=== PATIENT | female | born 1960 | race Caucasian/White ===

== ENCOUNTER 2019-10-15 02:32 | Inpatient (IN) | payer OTHER ==
[2019-10-15 03:37] LABS: Hemoglobin 7.9 g/dL (12.0-16.0); Mean Corpuscular HGB CONC 34.7 g/dL (32.0-36.0); Mean Corpuscular Hemoglobin 38.1 pg (27.0-31.0); RBC Distribution Width 16.8 % (11.5-14.5); Red Blood Cell (RBC) Count 2.07 mill/uL (4.20-5.40)
[2019-10-15] MEDS ORDERED: Piperacillin/Tazobactam 3.375 GM VIAL ONE (03:44)
[2019-10-15 03:53] LABS: ALT (SGPT) 63 U/L (8-55); AST (SGOT) 98 U/L (5-34); Albumin 3.6 g/dL (3.5-5.0); Alkaline Phosphatase 140 U/L (40-110); Anion Gap 22 mmol/L (10-20); BUN (Urea Nitrogen) 9 mg/dL (9.8-20.1); Bilirubin, Total 3.7 mg/dL (0.2-1.2); Calc. Creatinine Clearance 0 mL/min (70-130); Calcium 9.1 mg/dL (7.8-10.44); Carbon Dioxide 20 mmol/L (22-29); Chloride 95 mmol/L (98-107); Estimated GFR-MDRD 65; Globulin 2.4 g/dL (2.4-3.5); Glucose 111 mg/dL (70-105); Lipase 31 U/L (8-78); Potassium 3.4 mmol/L (3.5-5.1); Sodium 134 mmol/L (136-145)
[2019-10-15 03:54] LABS: #Lymphocytes 0.4 thou/uL (1.20-3.40); #Monocytes 0.3 thou/uL (0.11-0.59); #Neutrophils 2.6 thou/uL (1.40-6.50); %Basophils 0.3 % (0.0-1.0); %Eosinophils 0.4 % (0.0-10.0); %Lymphocytes 12.8 % (21.0-51.0); %Monocytes 9.7 % (0.0-10.0); %Neutrophils 76.8 % (42.0-75.0); MDiff Complete? YES; Macrocytosis SLIGHT = 6-15 cells (100X) (0-5/hpf); Mean Platelet Volume 8.1 fL (7.4-10.4); Platelet Count 136 thou/uL (130-400); White Blood Cell (WBC) Count 3.4 thou/uL (4.8-10.8)
[2019-10-15] MEDS ORDERED: Cefepime 2 GM VIAL ONE (04:15)
[2019-10-15 04:42] LABS: PTT 26.8 SEC (22.9-36.1); Prothrombin Time 12.9 SEC (12.0-14.7)
[2019-10-15] MEDS ORDERED: metroNIDAZOLE 500 MG/100 ML BAG ONE (05:02)
[2019-10-15 05:15] LABS: Bilirubin 2+ (Negative); Blood, Urine Trace (Negative); Clarity Extra Turbid (Clear); Glucose, Urine (Dipstick) Normal (Negative); Leukocyte 75 Leu/uL (Negative); Nitrite Negative (Negative); Protein, Urine (Dipstick) 50 mg/dL (Neg-Trace); Urobilinogen 6 mg/dL (Less than 2); Yeast-Budding 2+ HPF (None Seen)
[2019-10-15 05:25] LABS: Bacteria/HPF 1+ HPF (None Seen); Squamous Epithelial 21-50 HPF (0-3)
--- NOTE | 2019-10-15 05:59 | PDOC.FPRHP ---
- History of Present Illness Chief Complaint: AMS, Fever, Hyperbilirubinemia History of Present Illness: Pt is a 59 yo female with PMH significant for COPD, DM, HTN, HLD, Graves Disease , and Anxiety who presented to the [facility] with AMS, fever, cough, wheezing. Pt has been experiencing cough for a couple of weeks. She denied sputum production. He has routinely been taking her inhalers but does not have them in the hospital. Decreased PO intake x 3 days. At the [facility] she was found to be septic, fever, lactic acid elevation, tachycardic, WBC WNL but left shift. She also was noted to have a bilirubin of 3.7 so further workup needed and transferred to [facility]. In our ED she was still found to be altered. EKG revealed sinus tachycardia. She was started on cefepime, vancomycin, flagyl for possible ascending cholangitis. Pt has history GI bleed in August at [facility]. Hx taken from and [facility] ED Note. - Allergies/Adverse Reactions Allergies Allergy/AdvReac Type Severity Reaction Status Date / Time No Known Allergies Allergy Unverified 10/15/19 06:30 - History PMHx: COPD, DM, HTN, HLD, Grave's Disease, Anxiety PSHx: Appendectoy, Thyroidectomy, R Eye Surg unsure reason FHx: unable to obtain Social: smokes 1/2 ppd, drinks alcohol occasionally, no drug use - Review of Systems General: reports: fever/chills, weight/appetite/sleep changes ENT: denies: nasal congestion, rhinorrhea Respiratory: reports: cough, shortness of breath. denies: congestion Cardiovascular: denies: chest pain, palpitation, edema Gastrointestinal: reports: nausea. denies: vomiting, diarrhea, constipation Skin: denies: rashes, lesions Neurological: denies: numbness - Vital signs BP: 97/69 HR: 115 RR: 18 Tmax: 99.4 Pox: 98% on RA Wt: 73.5 kg - Physical Exam Constitutional: NAD -Constitutional: She is awake, alert, and oriented x [address], she also has poor short term memory HEENT: PERRLA, EOMI Neck: FROM, trachea midline Heart: RRR, normal S1/S2 Lungs: CTAB, no wheezing -Lungs: Decreased breath sounds Abdomen: non-tender, bowel sounds present -Abdomen: mild distention, negative allen's Neurological: no focal deficit, CN II-XII intact Heme/Lymphatic: no purpura, no petechia FMR H&P: Results - Labs Result Diagrams: 10/15/19 03:28 10/15/19 03:09 Lab results: WBC 3.4 thou/uL (4.8-10.8) L 10/15/19 03:28 Hgb 7.9 g/dL (12.0-16.0) L 10/15/19 03:28 Hct 22.8 % (36.0-47.0) L 10/15/19 03:28 MCV 110.0 fL (78.0-98.0) H 10/15/19 03:28 Plt Count 136 thou/uL (130-400) 10/15/19 03:28 Neutrophils % 76.8 % (42.0-75.0) H 10/15/19 03:28 Sodium 134 mmol/L (136-145) L 10/15/19 03:09 Potassium 3.4 mmol/L (3.5-5.1) L 10/15/19 03:09 Chloride 95 mmol/L (98-107) L 10/15/19 03:09 Carbon Dioxide 20 mmol/L (22-29) L 10/15/19 03:09 BUN 9 mg/dL (9.8-20.1) L 10/15/19 03:09 Creatinine 0.89 mg/dL (0.6-1.1) 10/15/19 03:09 Glucose 111 mg/dL (70-105) H 10/15/19 03:09 Lactic Acid 5.9 mmol/L (0.5-2.2) H* 10/15/19 03:09 Calcium 9.1 mg/dL (7.8-10.44) 10/15/19 03:09 Total Bilirubin 3.7 mg/dL (0.2-1.2) H 10/15/19 03:09 AST 98 U/L (5-34) H 10/15/19 03:09 ALT 63 U/L (8-55) H 10/15/19 03:09 Alkaline Phosphatase 140 U/L (40-110) H 10/15/19 03:09 B-Natriuretic Peptide 119.1 pg/mL (0-100) H 10/15/19 03:28 Serum Total Protein 6.0 g/dL (6.0-8.3) 10/15/19 03:09 Albumin 3.6 g/dL (3.5-5.0) 10/15/19 03:09 Lipase 31 U/L (8-78) 10/15/19 03:09 Urine Ketones 20 mg/dL (Negative) A 10/15/19 03:40 Urine Blood Trace (Negative) A 10/15/19 03:40 Urine Nitrite Negative (Negative) 10/15/19 03:40 Ur Leukocyte Esterase 75 Elba/uL (Negative) A 10/15/19 03:40 Urine RBC 4-6 HPF (0-3) A 10/15/19 03:40 Urine WBC 4-6 HPF (0-3) A 10/15/19 03:40 Ur Squamous Epith Cells 21-50 HPF (0-3) A 10/15/19 03:40 Urine Bacteria 1+ HPF (None Seen) A 10/15/19 03:40 FMR H&P: A/P - Problem List (1) Hyperbilirubinemia Current Visit: Yes Status: Acute Code(s): E80.6 - OTHER DISORDERS OF BILIRUBIN METABOLISM (2) Lactic acidosis Current Visit: Yes Status: Acute Code(s): E87.2 - ACIDOSIS (3) Tachycardia Current Visit: Yes Status: Acute Code(s): R00.0 - TACHYCARDIA, UNSPECIFIED (4) Hypokalemia Current Visit: Yes Status: Acute Code(s): E87.6 - HYPOKALEMIA (5) COPD exacerbation Current Visit: Yes Status: Acute Code(s): J44.1 - CHRONIC OBSTRUCTIVE PULMONARY DISEASE W (ACUTE) EXACERBATION (6) HTN (hypertension) Current Visit: Yes Status: Acute Code(s): I10 - ESSENTIAL (PRIMARY) HYPERTENSION (7) DMII (diabetes mellitus, type 2) Current Visit: Yes Status: Acute (8) Graves disease Current Visit: Yes Status: Acute Code(s): E05.00 - THYROTOXICOSIS W DIFFUSE GOITER W/O THYROTOXIC CRISIS (9) Anxiety Current Visit: Yes Status: Acute Code(s): F41.9 - ANXIETY DISORDER, UNSPECIFIED (10) AMS (altered mental status) Current Visit: Yes Status: Acute Code(s): R41.82 - ALTERED MENTAL STATUS, UNSPECIFIED - Plan Pt is a 59 yo female who presents for AMS, cough, hyperbilirubinemia: # Sepsis 2/2 COPD, possible abdominal pathology, urinary tract infection Tachycardia, lactic acid elevation, Normal WBC with left shift, fever - pt started on cefepime, vanc, flagyl in the emergency department # COPD Exacerbation - start prednisone x 5 days - pt started on - duonebs - med rec needed # Hyperbilirubinemia - pending Abdominal U/S, CT Abdomen - started abx as above in case pt has acute infectious process affecting the gallbladder # AMS Pt AAOx2 but has poor short term memory - likely secondary to sepsis, monitor for resolution with treatment. # Macrocytic Anemia - further workup needed # HTN - hold home meds # Graves Disease - continue home meds # HLD - continue home meds # DM II - continue home meds - low dose SSI # Anxiety - continue home meds FMR H&P: Upper Level - Plan Date/Time: 10/15/19 0557 I, William Warner MD, have evaluated this patient and agree with findings/plan as outlined by graphic design intern resident. Pertinent changes/additions are listed here. Manuela Daniel is a 59 year old F with a PMH of COPD, DM2, HTN, Graves who was transferred from the [place] ED for sepsis. She was experiencing AMS, fever, cough, wheezing. Sx have been progressively worsening of the last couple weeks. She has been using inhalers at home with no improvement of symptoms. She has had decreased po intake for a few days. Denies any chest pain, objective fevers, abdominal pain, n/v. BP was 97/69, HR 115, RR 18, 98% on RA. Labs on admission showed WBC 3.4 with left shift, Hg of 7.9. Also had a bilirubin of 3.7. EKG at outside facility revealed sinus tachycardia. She was started on cefepime, vancomycin and flagyl. ERMD called to admission patient for sepsis 2/2 possible ascending cholangitis. Patient denies any abdominal pain and there was no ttp on exam. Imaging was ordered but not completed yet. Pts history is concerning for COPD exac, had decreased air movement, wheezes. Will continue empiric antibiotics, steroids, and duonebs. Further management based on imaging results. Urine was dirty and may be source of sepsis. Urine and blood Cx ordering. Working up bilirubin with RUQ US, results pending. Anticipate hospital stay >48 hours. Please see graphic design intern note for full H&P, which I have reviewed and agree with.
[2019-10-15] MEDS ORDERED: Dextrose 5% in Water 1,000 ML IV PRN (07:27)
[2019-10-15] MEDS ORDERED: Dextrose 50% Abboject 50 ML SYRINGE SLOW IVP PRN (07:27)
[2019-10-15] MEDS ORDERED: HumaLOG 300 UNITS/3 ML VIAL SC PRN (07:27)
--- NOTE | 2019-10-15 07:32 | CT ---
PRELIMINARY REPORT/[facility]/EMERGENCY AFTER HOURS PROCEDURE: EXAM: CT Abdomen and CT Pelvis, with Contrast DATE/ TIME: 10/15/2019, 4:06 AM INDICATION: Hyperbilirubinemia. Transfer patient from [place]. TECHNIQUE: Helical CT was performed through the abdomen and pelvis during the intravenous administra tion of 100 mL Isovue-370. GI contrast was not utilized. Coronal and sagittal reconstructions were generated and reviewed. Exam was performed using one or more of the following dose reduction te chniques: automated exposure control, adjustment of the mA and/or kV according to patient size, or use of iterative reconstruction technique. COMPARISON: None. FINDINGS: The lung bases are clear. There is no pleural effusion. The stomach contains a small amount of gas and liquid. Nondilated small bowel loops are of varying c aliber with most containing gas. Appendix is not seen but there is no pericecal abnormality to suggest acute appendicitis. Submucosal edema because of circumferential wall thickening of the cecum and ascending colon with single wall thickness measuring up to 9 mm. There is gas scattered throughout the colon without obstruction. There is negligible form stool. There is no intestinal pn eumatosis, portal venous air or pneumoperitoneum. Gallbladder is unremarkable. Liver measures 20.7 cm longitudinally and has a coarse parenchymal db lisandra with hypoattenuation consistent with fatty infiltration. Pancreas is moderately atrophic. Spleen, adrenal glands and kidneys are normal. The abdominal aorta tapers containing moderate athero sclerotic calcified plaque. Inferior vena cava is not flattened. Gynecological structures are unremarkable. Urinary bladder is decompressed. There is no pelvic ascites. There is a large amount of retroperitoneal, intra-abdominal and extra-abdominal adipose tissue. Smal l 1 cm umbilical hernia contains fat. Mild lumbar facet arthropathy is seen. There is no malalignment. No acute osseous abnormalities apparent. IMPRESSION: 1. Abnormal findings within the cecum and ascending colonic segment. Findings suggest nonspecific c olitis. 2. Hepatomegaly. Hepatosteatosis. 3. Aortic atherosclerosis. 4. Small fat-containing umbilical hernia. ELECTRONICALLY SIGNED BY: Robert Gee DO Oct 15, 2019 5:14:17 AM NURSERY MANAGER FINAL REPORT CT ABDOMEN AND PELVIS WITH IV CONTRAST: DATE: 10/15/2019. TIME: Performed on an emergency basis at 0405 hours. HISTORY: Abdominal pain. Hyperbilirubinemia. FINDINGS: Agree with the preliminary report by Dr. Gee from [facility]. Acute inflammation of the ascen ding colon. Cause for acute colitis is not evident. Hepatosteatosis. Other incidental-type findings as detailed in the preliminary report. Transcribed Date/Time: 10/15/2019 8:02 AM
--- NOTE | 2019-10-15 07:35 | ULT ---
Sonogram right upper quadrant HISTORY: Right upper quadrant pain. FINDINGS: Gallbladder has a normal appearance. No stones visible. Common duct is 0.4 cm. Liver is dif fusely echogenic without focal mass or intrahepatic biliary dilatation. No free fluid. IMPRESSION: Hepatic steatosis. No evidence of gallstones or acute biliary obstruction.
--- NOTE | 2019-10-15 08:19 | CT ---
PRELIMINARY REPORT/[facility]/AFTER HOURS PROCEDURE CT HEAD WITHOUT CONTRAST: 10/15/2019 4:02 a.m. INDICATION: Altered mental status. Transfer patient from [place]. TECHNIQUE: Axial CT imaging was performed through the head without intravenous administration of contrast. Exam was performed using one or more of the following dose reduction techniques: automated exposure cont rol, adjustment of the mA and/or kV according to patient size, or use of iterative reconstruction mika hnique. COMPARISON: None. FINDINGS: There is no intracranial hemorrhage, mass or mass effect. The brain exhibits mild diffuse atrophy. Mild periventricular white-matter hypoattenuation is seen; although nonspecific this is most commonly related to the sequela of chronic small-vessel ischemia. There is no CT evidence of an acute infarc t. Calcified atheroma is seen within the cavernous portions of the internal carotid arteries compati ble with intracranial atherosclerotic vascular disease (ASVD). Mastoid air cells are clear. Imaging begins at the lower maxillary level. A large 3-4 cm nasal septal defect is noted. There day ears to have been bilateral turbinectomies. Mild lobulated mucosal thickening in the maxillary sinuse s is seen. Remaining sinuses are essentially clear. Orbital structures show no gross abnormality. IMPRESSION: 1. CT shows no acute intracranial abnormality. 2. Atrophy and leukoencephalopathy likely related to the sequela of chronic microangiopathy in this patient with intracranial ASVD. 3. Evidence of prior endoscopic sinus surgery with nasal septal perforation. 4. Bilateral maxillary sinus disease. ELECTRONICALLY SIGNED BY: Robert Gee DO Oct 15, 2019 4:48:16 AM SPINDLE REPAIRER This report is intended for review by the ordering physician only, in accordance of law. If you recei ve this report in error, please call [facility] at [phone]. FINAL REPORT CT BRAIN WITHOUT CONTRAST: FINDINGS/IMPRESSION: I agree with the findings and impression given in the preliminary report per the [facility] phy sician. No evidence of acute intracranial abnormality. CODE QA
[2019-10-15] MEDS: predniSONE 20 MG TAB PO SCH (08:37)
--- NOTE | 2019-10-15 08:39 | RAD ---
SINGLE VIEW OF THE CHEST: COMPARISON: None. HISTORY: Altered mental status with possible infection. FINDINGS: Single view of the chest shows a normal sized cardiomediastinal silhouette. There is no evidence of c onsolidation, mass, or pleural effusion. The bones are unremarkable. IMPRESSION: No evidence of acute cardiopulmonary disease. POS: C
[2019-10-15] MEDS ORDERED: Azithromycin 250 MG TAB PO SCH (09:00)
[2019-10-15] MEDS ORDERED: Enoxaparin Sodium 40 MG/0.4 ML SYRINGE SC SCH (09:00)
[2019-10-15] MEDS ORDERED: Lactated Ringer's 1,000 ML IV SCH (09:45)
[2019-10-15 10:17] LABS: Iron Binding Capacity, Total 138 mcg/dL (265-497); Lactic Acid 3.8 mmol/L (0.5-2.2); Transferrin, Serum 110 mg/dL (180-382)
[2019-10-15 10:18] LABS: Iron 150 ug/dL (50-170)
[2019-10-15] MEDS ORDERED: Potassium Chloride 20 MEQ TAB PO SCH (11:15)
[2019-10-15 11:21] VITALS: BMI 26.2
[2019-10-15 11:30] LABS: Ferritin 2584.31 ng/mL (10-291)
--- NOTE | 2019-10-15 12:23 | HP ---
I have discussed the case with Dr. Harvey Meléndez and agree with his assessment and plan. HISTORY OF PRESENT ILLNESS: Briefly, Ms. Daniel is a 59-year-old white female patient who is a transfer from [facility]. She presented to [place] yesterday with a cough that have been ongoing for several days and associated with fever and altered mental status. Of note, she was noted to have significant hyperbilirubinemia and elevated LFTs as well as elevated alkaline phosphatase, all consistent with possible ascending cholangitis. She was therefore transferred to our facility for further evaluation and treatment. I examined her on the morning of 10/15/2019. This morning she is confused but awake and alert. She denies any abdominal pain, but states that two days ago she did have right upper quadrant abdominal pain. Evidently she had some discomfort earlier this morning in the ER because the note states that she had a right upper quadrant pain at that time with abdominal distention. PHYSICAL EXAMINATION: VITAL SIGNS: Her blood pressure is 100/70. Her heart rate is 100 and regular. She has a temperature of 99.4, her room air pulse ox is 98%. EAR, NOSE, AND THROAT: Dry mucous membranes. No erythema or exudate. NECK: Supple. CARDIAC: Heart rhythm is regular. No gallop or murmur noted. LUNGS: Breath sounds are diminished with rhonchi. No wheezing. No respiratory distress. ABDOMEN: Nontender at this time. Slightly distended. No guarding, rebound, or rigidity. Bowel sounds are diminished. She also has an umbilical hernia approximately 2 cm, which is easily reducible. NEUROLOGIC: There are no focal deficits other than being disoriented to time and place. EXTREMITIES: 1+ edema. LABORATORY DATA: Currently CBC shows a white count of 3400 with a hemoglobin 7.9, hematocrit 22.8 and MCV of 110. Chemistries; her sodium is 134, potassium 3.4, chloride 95, bicarb 20, BUN 9, and creatinine 0.89, glucose 111. Her initial lactic acid was 5.9, is now dropped to 3.8. Her initial total bilirubin was 3.7, it is now 2.6. Her AST is elevated at 98. Her ALT is now elevated at 63 and her alkaline phosphatase is elevated at 140. Her abdominal ultrasound shows no evidence of gallstones or acute biliary obstruction. Her abdominal and pelvic CT shows possible inflammation in the ascending colon and cecum. She has hepatomegaly with steatosis. She has a small fat containing umbilical hernia. ASSESSMENT: Possible sepsis, possibly secondary to ascending cholangitis. COMMENT: Given the fact that Ms. Daniel had abdominal pain yesterday and had continuing pain even up to early this morning with right upper quadrant pain and distention, given that her alkaline phosphatase is elevated and her bilirubin is elevated, it is all strongly suggest the possibility that she had a common duct stone which has subsequently passed. We will proceed with an MRCP to better delineate the biliary tree. We will treat her COPD exacerbation. We will trend her bilirubin and alkaline phosphatase and continue her on broad-spectrum antibiotics until her clinical picture is clearer. Job ID: [id number]
[2019-10-15] MEDS: Sodium Chloride 0.9% 1,000 ML IV SCH ×2 (12:57→21:50)
[2019-10-15] MEDS: metroNIDAZOLE 500 MG in Premix Bag 1 BAG IVPB SCH ×2 (13:02→21:50)
--- NOTE | 2019-10-15 13:02 | MRI ---
MRI ABDOMEN WITHOUT CONTRAST AND MRCP: HISTORY: Generalized abdominal pain, concern for choledocholithiasis. FINDINGS: There is diffuse signal drop out on the [id number] images in the liver consistent with fatty infilt ration. No intra- or extrahepatic biliary ductal dilatation is seen. No gallstones are identified. The spleen, pancreas, adrenal glands, and kidneys are unremarkable. The bone marrow signal is karolina l. No free fluid or lymphadenopathy is seen. No filling defects are seen in the common bile duct. IMPRESSION: 1. Hepatosteatosis. 2. No evidence of cholelithiasis or choledocholithiasis. POS: [id number]
[2019-10-15] MEDS ORDERED: Ibuprofen 600 MG TAB PO PRN (15:02)
[2019-10-15] MEDS ORDERED: Iopamidol-370 76% 500 ML 1 ML ONE (15:29)
[2019-10-15] MEDS ORDERED: cefTRIAXone\\ROCEPHIN 1 GM in Sodium Chloride 0.9% 100 ML IVPB SCH (16:00)
[2019-10-15] MEDS ORDERED: cefTRIAXone\\ROCEPHIN 2 GM in Sodium Chloride 0.9% 100 ML IVPB SCH (16:00)
[2019-10-15] MEDS: Acetaminophen 325 MG TAB PO PRN ×2 (16:17→22:15)
[2019-10-15] MEDS: metFORMIN 500 MG TAB PO SCH (16:18)
[2019-10-15] MEDS ORDERED: traMADol HCl 50 MG TAB PO SCH (22:00)
[2019-10-15] MEDS: Melatonin 3 MG TAB PO PRN (22:15)
[2019-10-15] MEDS ORDERED: hydrOXYzine 10 MG TAB PO PRN (23:33)
[2019-10-16] MEDS: Sodium Chloride 0.9% 1,000 ML IV SCH ×3 (04:11→21:05)
--- NOTE | 2019-10-16 05:56 | PDOC.FM ---
- Subjective Subjective: Patient doing well this morning. Reports her abdominal pain is improved, though it is still slightly ttp. Mother also reports that she continues to have episodes of coughing. Mother was in the room, reported that she had a corneal infection this past april and the infection caused the patient to be bed-bound for quite some time, to the point that now she is de-conditioned and cannot get out of bed on her own. The mother also reports that she drinks daily, believes she may have an alcohol problem. - Objective Vital Signs & Weight: Vital Signs (12 hours) Temp Pulse Resp BP Pulse Ox 10/16/19 04:00 98.8 F 108 H 20 104/70 94 L 10/16/19 00:00 98.2 F 108 H 20 101/69 97 10/15/19 20:00 97 10/15/19 19:40 97.9 F 118 H 20 93/59 L 95 Weight Admit Weight 71.214 kg Weight 71.441 kg I&O: 10/14/19 10/15/19 10/16/19 06:59 06:59 06:59 Intake Total 540 Balance 540 Result Diagrams: 10/16/19 07:06 10/16/19 07:06 Phys Exam - Physical Examination Constitutional: NAD HEENT: moist MMs icteric sclera bilatearlly Neck: supple, full ROM Respiratory: no wheezing, no rales Cardiovascular: RRR, no significant murmur Gastrointestinal: soft slightly ttp, mostly RUQ Musculoskeletal: no edema, pulses present Neurological: moves all 4 limbs Deviation from normal: behavior more similar to that of a child than an adult Deviation from normal: slight jaundice Dx/Plan (1) AMS (altered mental status) Code(s): R41.82 - ALTERED MENTAL STATUS, UNSPECIFIED Status: Acute (2) Anxiety Code(s): F41.9 - ANXIETY DISORDER, UNSPECIFIED Status: Chronic (3) DMII (diabetes mellitus, type 2) Status: Chronic (4) Graves disease Code(s): E05.00 - THYROTOXICOSIS W DIFFUSE GOITER W/O THYROTOXIC CRISIS Status : Chronic (5) HTN (hypertension) Code(s): I10 - ESSENTIAL (PRIMARY) HYPERTENSION Status: Chronic (6) Hyperbilirubinemia Code(s): E80.6 - OTHER DISORDERS OF BILIRUBIN METABOLISM Status: Acute (7) Lactic acidosis Code(s): E87.2 - ACIDOSIS Status: Acute (8) Transaminitis Code(s): R74.0 - NONSPEC ELEV OF LEVELS OF TRANSAMNS & LACTIC ACID DEHYDRGNSE Status: Acute - Plan Plan: Pt is a 59 yo female who presents for AMS, cough, hyperbilirubinemia: # Sepsis (resolved) 2/2 urinary tract infection, possible ascending cholangitis #Hyperbilirubinemia -Tachycardia, lactic acid elevation, Normal WBC with left shift, fever - pt started on cefepime, vanc, flagyl in the emergency department -lactic trending down: 5.9>5.3>3.8>1.6 -started on ceftriaxone and flagyl / for ascending cholangitis -IVF -bili: 3.7>3.2, improving -MRCP: hepatosteatosis, no evidence of cholelithiasis or choledocolithiasis -likely patient had a stone in her CBD that has since passed #Transaminitis -AST 98>127 -ALT 63>60 -AST/ALT >2.0 -mother reports that she drinks alcohol daily -hepatitis panel, rpr, hiv pending #Deconditioning -PT/OT -CM for HH/Rehab #Possible alcohol abuse -ASE protocol # COPD Exacerbation - started prednisone x 5 days - duonebs # AMS, resolved Pt AAOx2 but has poor short term memory - mother states that she is at baseline # Macrocytic Anemia, likely due to chronic disease - iron wnl 150 -TIBC low 138 -Transferrin low 110 -Ferritin high 2584 -B12 wnl 296 -RBC folate pending # HTN - hold home meds for now # Graves Disease - continue home meds # HLD - continue home meds # DM II - continue home meds - low dose SSI # Anxiety - continue home meds DVT ppx: SCDs Dispo: inpatient for IV abx for possible ascending cholangitis, UTI, monitoring of mental status; PT/OT today Code: Full
[2019-10-16] MEDS: metroNIDAZOLE 500 MG in Premix Bag 1 BAG IVPB SCH ×3 (05:58→21:05)
[2019-10-16 07:36] LABS: Lactic Acid 1.6 mmol/L (0.5-2.2)
[2019-10-16 07:47] LABS: ALT (SGPT) 60 U/L (8-55); AST (SGOT) 127 U/L (5-34); Alkaline Phosphatase 130 U/L (40-110); Anion Gap 24 mmol/L (10-20); BUN (Urea Nitrogen) 10 mg/dL (9.8-20.1); Bilirubin, Total 3.2 mg/dL (0.2-1.2); Calc. Creatinine Clearance 100 mL/min (70-130); Calcium 8.6 mg/dL (7.8-10.44); Carbon Dioxide 13 mmol/L (22-29); Chloride 105 mmol/L (98-107); Estimated GFR-MDRD 86; Potassium 3.1 mmol/L (3.5-5.1); Sodium 139 mmol/L (136-145)
[2019-10-16 07:51] LABS: Glucose 59 mg/dL (70-105)
[2019-10-16 07:54] LABS: Band 29 % (5-11); Hemoglobin 7.3 g/dL (12.0-16.0); Lymphocytes 27 % (21-51); MDiff Complete? YES; Macrocytosis SLIGHT = 6-15 cells (100X) (0-5/hpf); Mean Corpuscular HGB CONC 33.9 g/dL (32.0-36.0); Mean Corpuscular Hemoglobin 37.4 pg (27.0-31.0); Mean Platelet Volume 8.2 fL (7.4-10.4); Monocytes 6 % (0-10); Neutrophil 38 % (42-75); Platelet Count 150 thou/uL (130-400); RBC Distribution Width 16.9 % (11.5-14.5); Red Blood Cell (RBC) Count 1.95 mill/uL (4.20-5.40); White Blood Cell (WBC) Count 5.5 thou/uL (4.8-10.8)
[2019-10-16] MEDS ORDERED: Potassium Chloride 20 MEQ TAB PO SCH (08:12)
[2019-10-16] MEDS: guaiFENesin/DM ER PO SCH ×2 (08:26→21:07)
[2019-10-16] MEDS: predniSONE 20 MG TAB PO SCH (08:26)
[2019-10-16] MEDS: Levothyroxine 150 MCG TAB PO SCH (08:26)
[2019-10-16] MEDS: Potassium Chloride 20 MEQ TAB PO SCH (08:27)
[2019-10-16] MEDS: metFORMIN 500 MG TAB PO SCH ×2 (08:27→16:27)
[2019-10-16] MEDS: Folic Acid 1 MG TAB PO SCH ×2 (08:27→09:07)
[2019-10-16] MEDS: Nicotine 14 MG PATCH TD SCH (08:30)
[2019-10-16] MEDS ORDERED: Diazepam 5 MG TAB PO PRN (08:54)
[2019-10-16] MEDS ORDERED: Thiamine HCl 200 MG/2 ML VIAL IM SCH (09:00)
[2019-10-16] MEDS ORDERED: Enoxaparin Sodium 40 MG/0.4 ML SYRINGE SC SCH (09:00)
[2019-10-16] MEDS ORDERED: FLU VACC QS2019-20(6MOS UP)/PF 60 MCG/0.5 ML SYRINGE IM ONE (09:00)
[2019-10-16] MEDS ORDERED: Diazepam 5 MG TAB PO SCH (09:00)
[2019-10-16] MEDS ORDERED: Prevnar 13-Val Conj/PF 0.5 ML SYRINGE IM ONE (09:00)
[2019-10-16] MEDS ORDERED: traMADol HCl 50 MG TAB PO PRN (09:50)
[2019-10-16] MEDS: Multivitamin W/ Minerals 1 TAB PO SCH (10:15)
--- NOTE | 2019-10-16 12:07 | PRG ---
DATE OF SERVICE: 10/16/2019 I have examined the patient. I have discussed the case with Dr. Melody Botello and agree with her assessment and plan. Job ID: [id number]
[2019-10-16 12:36] LABS: Magnesium 1.4 mg/dL (1.6-2.6)
[2019-10-16 12:38] LABS: Phosphorus Less than 1.0 mg/dL (2.3-4.7)
[2019-10-16 12:58] LABS: Syphilis Antibody Nonreactive (Nonreactive); Syphilis Antibody Index 0.04 S/CO (<1.00 Non-Reactive)
[2019-10-16 12:59] LABS: HBSAB Concentration 1.19 mIU/mL; HBSAg Index 0.16 S/CO (0-0.99); Hep B Core Total Ab Non-Reactive (NonReactive); Hep B Core Total Index 0.08 S/CO (0-0.79); Hep B Surf AB Non-Reactive (NonReactive); Hep B Surf Ag Non-Reactive S/CO (NonReactive)
[2019-10-16] MEDS ORDERED: Potassium Phosphate 30 MMOL in Sodium Chloride 0.9% 500 ML IVPB SCH ×2 (13:15→17:45)
[2019-10-16] MEDS ORDERED: cefTRIAXone\\ROCEPHIN 2 GM in Sodium Chloride 0.9% 100 ML IVPB SCH (16:00)
[2019-10-16 17:00] LABS: Anion Gap 23 mmol/L (10-20); BUN (Urea Nitrogen) 9 mg/dL (9.8-20.1); Calc. Creatinine Clearance 99 mL/min (70-130); Calcium 8.4 mg/dL (7.8-10.44); Carbon Dioxide 13 mmol/L (22-29); Chloride 104 mmol/L (98-107); Estimated GFR-MDRD 85; Glucose 124 mg/dL (70-105); Magnesium 1.4 mg/dL (1.6-2.6); Potassium 3.3 mmol/L (3.5-5.1); Sodium 137 mmol/L (136-145)
[2019-10-16 17:02] LABS: Phosphorus Less than 1.0 mg/dL (2.3-4.7)
[2019-10-16] MEDS ORDERED: Magnesium 2 GM/50 ML 2 GM in Premix Bag 1 BAG IVPB SCH (17:30)
[2019-10-16] MEDS: Melatonin 3 MG TAB PO PRN (21:06)
[2019-10-17] MEDS ORDERED: Diazepam 5 MG TAB PO PRN (04:00)
[2019-10-17] MEDS: Sodium Chloride 0.9% 1,000 ML IV SCH ×2 (04:28→08:47)
[2019-10-17] MEDS: metroNIDAZOLE 500 MG in Premix Bag 1 BAG IVPB SCH (04:29)
--- NOTE | 2019-10-17 06:02 | PDOC.FM ---
- Subjective Subjective: Patient very irritable this morning, stating that she wants to go home. She rejected PT yesterday and labs this morning. Discussed with nursing, patient has not met ASE scoring for prn meds. Discussed with patient and mother that we will restart her home medications this morning, patient agreeable. Mother states that patient chokes on her food, patient states that this is due to her COPD and coughing. Little PO intake yesterday. Discussed with patient that speech therapy consult is in and will help determine her ability to swallow. Patient agreeable. - Objective Vital Signs & Weight: Vital Signs (12 hours) Temp Pulse Resp BP Pulse Ox 10/17/19 04:00 98.7 F 110 H 20 104/71 92 L 10/16/19 19:36 97.3 F L 105 H 20 96/62 94 L Weight Admit Weight 71.214 kg Weight 71.441 kg I&O: 10/15/19 10/16/19 10/17/19 06:59 06:59 06:59 Intake Total 540 Balance 540 Result Diagrams: 10/16/19 07:06 10/16/19 16:29 Phys Exam - Physical Examination Irritable HEENT: moist MMs sclera icteric Neck: supple, full ROM Respiratory: no wheezing, no rales Cardiovascular: RRR, no significant murmur Gastrointestinal: soft, positive bowel sounds decreased tenderness 1+ pitting edema ble Neurological: non-focal, moves all 4 limbs Deviation from normal: behavior child-like Deviation from normal: jaundiced Dx/Plan (1) AMS (altered mental status) Code(s): R41.82 - ALTERED MENTAL STATUS, UNSPECIFIED Status: Acute (2) Anxiety Code(s): F41.9 - ANXIETY DISORDER, UNSPECIFIED Status: Chronic (3) DMII (diabetes mellitus, type 2) Status: Chronic (4) Graves disease Code(s): E05.00 - THYROTOXICOSIS W DIFFUSE GOITER W/O THYROTOXIC CRISIS Status : Chronic (5) HTN (hypertension) Code(s): I10 - ESSENTIAL (PRIMARY) HYPERTENSION Status: Chronic (6) Hyperbilirubinemia Code(s): E80.6 - OTHER DISORDERS OF BILIRUBIN METABOLISM Status: Acute (7) Lactic acidosis Code(s): E87.2 - ACIDOSIS Status: Acute (8) Transaminitis Code(s): R74.0 - NONSPEC ELEV OF LEVELS OF TRANSAMNS & LACTIC ACID DEHYDRGNSE Status: Acute (9) Sepsis Code(s): A41.9 - SEPSIS, UNSPECIFIED ORGANISM Status: Acute (10) UTI (urinary tract infection) Status: Acute (11) Ascending cholangitis Code(s): K83.09 - OTHER CHOLANGITIS Status: Acute - Plan Plan: Pt is a 59 yo female who presents for AMS, cough, hyperbilirubinemia: # Sepsis (resolved) 2/2 urinary tract infection, possible ascending cholangitis #Hyperbilirubinemia -Tachycardia, lactic acid elevation, Normal WBC with left shift, fever - pt started on cefepime, vanc, flagyl in the emergency department -lactic trending down: 5.9>5.3>3.8>1.6 -started on ceftriaxone and flagyl 10/15 for ascending cholangitis -IVF -bili: 3.7>3.2, improving; patient refused labs am 10/17, will await labs later this morning -MRCP: hepatosteatosis, no evidence of cholelithiasis or choledocolithiasis -likely patient had a stone in her CBD that has since passed; reports of improved abdominal pain -Urine cx: gram neg rods, sensitivities pending #Transaminitis -AST 98>127 -ALT 63>60 -AST/ALT >2.0 -mother reports that she drinks alcohol daily -hep b immune, rpr neg, hep a and c pending, hiv pending #Deconditioning -PT/OT -CM for HH/Rehab -OT recommended rehab at this time; PT was rejected by patient 10/16, hopefully will be more amenable today #Possible alcohol abuse -ASE protocol # COPD Exacerbation - started prednisone x 5 days - duonebs # AMS, resolved Pt AAOx2 but has poor short term memory - mother states that she is at baseline # Macrocytic Anemia, likely due to chronic disease - iron wnl 150 -TIBC low 138 -Transferrin low 110 -Ferritin high 2584 -B12 wnl 296 -RBC folate pending # HTN - hold home meds for now # Graves Disease - continue home meds # HLD - continue home meds # DM II - continue home meds - low dose SSI # Anxiety - continue home meds DVT ppx: SCDs Dispo: inpatient for IV abx for possible ascending cholangitis, UTI, monitoring of mental status; PT/OT and CM today; speech to evaluated swallowing capability Code: Full
[2019-10-17] MEDS ORDERED: Loperamide HCl 2 MG CAP PO PRN (06:24)
[2019-10-17] MEDS ORDERED: clonazePAM 0.5 MG TAB PO SCH ×3 (06:45→21:00)
[2019-10-17 08:12] VITALS: BP 93/60; TEMP 97.8
[2019-10-17] MEDS: Levothyroxine 150 MCG TAB PO SCH (08:30)
[2019-10-17] MEDS: predniSONE 20 MG TAB PO SCH (08:31)
[2019-10-17] MEDS: Folic Acid 1 MG TAB PO SCH ×2 (08:31)
[2019-10-17] MEDS: metFORMIN 500 MG TAB PO SCH (08:31)
[2019-10-17] MEDS: guaiFENesin/DM ER PO SCH (08:32)
[2019-10-17] MEDS: Multivitamin W/ Minerals 1 TAB PO SCH (08:32)
[2019-10-17] MEDS: Potassium Chloride 20 MEQ TAB PO SCH (08:33)
[2019-10-17] MEDS: Nicotine 14 MG PATCH TD SCH (08:48)
[2019-10-17] MEDS ORDERED: Magnesium Oxide 400 MG TAB PO SCH (09:00)
[2019-10-17] MEDS ORDERED: Thiamine 100 MG TAB PO SCH (09:00)
--- NOTE | 2019-10-17 11:11 | PRG ---
DATE OF SERVICE: 10/17/2019 I have examined the patient. I have discussed her care with Dr. Melody Botello and agree with her assessment and plan. We have advised Ms. Daniel to stay at least one extra day to ensure further antibiotic therapy as well as to ensure that she can tolerate a soft diet. She is refusing. Job ID: [id number]
[2019-10-17] MEDS ORDERED: traZODone HCl 50 MG TAB PO SCH (21:00)
[2019-10-18 16:08] LABS: Folate,Hemolysate 508.8 ng/mL (Not Estab.); Hematocrit 21.3 % (34.0-46.6); RBC Folate Test Component 2389 ng/mL (>498)
--- NOTE | 2019-10-19 05:30 | PQF ---
VICTOR MYADI MENDOZA ANGELINE CHAVES [id number] CLINICAL DOCUMENTATION CLARIFICATION FORM: POST DISCHARGE Addendum to original discharge summary date: ____ Late entry note date: __ DATE: 10/19/2019 ATTN: ANGELINE CHAVES Please exercise your independent, professional judgment in responding to the clarification form. Clinical indicators are provided on the bottom of this form for your review Please check appropriate box(s): [ ] Encephalopathy: Type: [ ] Acute [ ] Subacute [ ] Chronic Etiology: [ ] Hypertensive [ ] Metabolic [ ] Toxic [ ] Hepatic with Coma [ ] Hepatic w/o Coma [ ] Hypoxic [ ] Septic [ ] Drug induced: [ ] Unspecified [ ] in the setting of underlying dementia [ ] Other (please specify) [ ] Transient Alteration of Awareness [ ] Other diagnosis [ ] Unable to determine In addition, please specify: Present on Admission (POA): [ ] Yes [ ] No [ ] Unable to determine For continuity of documentation, please document condition throughout progress notes and discharge summary. Thank You. CLINICAL INDICATORS - SIGNS / SYMPTOMS / LABS -AMS, fever, hyperbilirubinemia--[facility] medicine H&P, 10/15, ANGELINE CHAVES - Lactic acidosis- -[facility] H&P, 10/15, ANGELINE CHAVES - Sepsis 2/2 COPD, possible abnormal pathology, UTI--[facility] H&P, 10/15 , ANGELINE CHAVES - Altered mental status-[facility] medicine PN, 10/16, ANGELINE CHAVES - possible ascending cholangitis, UTI-[facility] medicine PN, 10/16, ANGELINE CHAVES RISK FACTORS -Graves disease- -[facility] H&P, 10/15, ANGELINE CHAVES - Hypokalemia--[facility] medicine H&P, 10/15, ANGELINE CHAVES - Anxiety--Family medicine PN, 10/16, ANGELINE CHAVES TREATMENTS: -Zosyn.IV- DEC, 10/15 -Sodium chloride.IV-DEC,10/15 - Lactate ringers.IV- DEC, 10/15 (This form is maintained as a part of the permanent medical record) 2014 [employer], [employer]. All Rights Reserved Veronica Rust [not provided] [not provided] MTDD
--- NOTE | 2019-10-19 10:03 | DIS ---
DATE OF ADMISSION: 10/15/2019 DATE OF DISCHARGE: 10/17/2019 ADMITTING RESIDENT: Harvey Meléndez DO ADMITTING ATTENDING: Gilbert Gibson MD DISCHARGE RESIDENT: Melody Botello MD. DISCHARGE ATTENDING: Oswald Veladre MD CONSULTS: Dietitian, Speech, OT, PT PROCEDURES: None. IMAGING: Abdomen and pelvis CT: Abnormal findings within the cecum and ascending colonic segment. Findings suggest nonspecific colitis. Hepatomegaly. Hepatic steatosis. Aortic atherosclerosis. Small fat containing umbilical hernia. Brain CT: CT shows no acute intracranial abnormality. Atrophy and leukoencephalopathy likely related to the sequela of chronic microangiopathy in this patient with intracranial ASVD. Evidence of prior endoscopic sinus surgery with nasal septal perforation. Bilateral maxillary sinus disease. No evidence of acute intracranial abnormality. Chest x-ray: No evidence of acute cardiopulmonary process. Abdominal ultrasound: Hepatic steatosis. No evidence of gallstones or acute biliary obstruction. MRCP: Hepatic steatosis. No evidence of cholelithiasis or choledocholithiasis. PRIMARY DIAGNOSES: Sepsis due to possible ascending cholangitis and urinary tract infection, hyperbilirubinemia, transaminitis, deconditioning, chronic obstructive pulmonary disease exacerbation, and altered mental status. SECONDARY DIAGNOSES: Alcohol abuse, macrocytic anemia, hypertension, Graves disease, hyperlipidemia, type 2 diabetes, and anxiety. DISCHARGE MEDICATIONS: 1. 300 mg cefdinir p.o. q.12 hours x7 days. 2. 0.5 mg clonazepam p.o. b.i.d. 3. 1 mg folic acid p.o. daily. 4. 150 mcg levothyroxine p.o. daily. 5. 500 mg metformin p.o. b.i.d. 6. One multivitamin with minerals p.o. daily. 7. Norethindrone/estradiol 0.5 mg p.o. daily. 8. 40 mg pantoprazole p.o. daily. 9. 20 mEq potassium chloride p.o. daily. 10. 40 mg prednisone p.o. q.a.m. x2 tabs. 11. 100 mg thiamine p.o. daily. 12. 50 mg tramadol p.o. q.6 hours p.r.n. 13. 100 mg trazodone p.o. at bedtime. DISCONTINUED MEDICATIONS: 1. 650 mg acetaminophen p.o. q.4 hours p.r.n. 2. Rocephin. 3. Ativan. 4. Mucinex. 5. Hydroxyzine. 6. Ibuprofen. 7. DuoNeb. 8. Loperamide. 9. Magnesium oxide. 10. Magnesium. 11. Melatonin. 12. Flagyl. 13. Nicotine patch. 14. Potassium chloride. 15. Potassium phosphate. HISTORY OF PRESENT ILLNESS/HOSPITAL COURSE: The patient is a 59-year-old female with a past medical history significant for COPD, diabetes, hypertension, hyperlipidemia, Graves disease, anxiety, who presented to the [facility] with altered mental status, fever, cough, and wheezing. She had reported that she had been coughing for a few weeks. She was found to have an elevated bilirubin with an elevated lactic acid and with abdominal pain in the ER, she was admitted to the hospital for the fear of possible ascending cholangitis with sepsis and elevated bilirubin. An MRCP was ordered, see above. She was treated with ceftriaxone and Flagyl during her hospitalization for treatment of possible ascending cholangitis, though she was not febrile throughout her hospitalization. She was also found to be hypokalemic and she had hypophosphatemia and hypomagnesemia. In followup, those electrolytes were also replaced. She was also found to have a urinary tract infection with urine showing gram-negative rods, that was treated with the ceftriaxone and she was sent home on a script for that. She was also treated for a COPD exacerbation and during her hospitalization, her lungs did sound clear, though she has continued to cough up sputum. She did work with Occupational Therapy, who recommended that the patient go to inpatient rehab, but she refused to work with Physical Therapy. All of her home sedating medications were held on admission due to concern for altered mental status. Upon discussion with her mother, she was actually at baseline. She was started on ASE protocol because the patient's mother believes that the patient was drinking multiple drinks every day, though during the hospitalization, she did not require any benzodiazepines per the NIURKA protocol. On the day of discharge, she was very irritated and her home clonazepam was restarted. However, she continued to refuse having any lab draws or to work with Physical Therapy or Occupational Therapy any further. A Speech consult eval was made that recommended that the patient have soft ground foods and the patient reported that she already eats soft foods at home because she has minimal cheese. There was a lengthy discussion with the patient and her mother about the benefits of the patient staying in the hospital so that she could receive further therapy and that Case Management can work on possibly finding a place for her to go for inpatient rehab. It was also stressed the importance of her to continue antibiotics for her COPD, UTI, and to prevent further abdominal infection as well as for continued repletion of her electrolytes. However, the patient adamantly refused to have any lab draws and was adamant that she be discharged. She was agreeable to last picker an antibiotic prescription at the pharmacy, and prescriptions for folic acid, thiamine, and multivitamin were also sent to the pharmacy. I had recommended that the patient follow up with her primary care physician to monitor her response with the p.o. antibiotics. Before discharge, the patient was counseled on the risks of leaving against medical advice including some cardiac arrhythmias due to her abnormal electrolytes and possible . The patient reported the risks back to me and stated that she understood the risks, but still would like to go home at that time. DISPOSITION: Guarded. DISCHARGE INSTRUCTIONS: 1. Location: Home. 2. Diet: Heart healthy, carb conscious, soft ground. 3. Activity: As tolerated. 4. Follow up with primary care provider within 3 days. Job ID: [id number] MTDD
[2019-10-20 17:09] LABS: Methylmalonic Acid 54 nmol/L (0-378)
== END 2019-10-17 11:58 | disposition home or self-care (01) | DRG 872 ==
LOC: ERS 02:32 → ERHOLD 06:30 → T4-B 11:09
PROVIDERS: ADMIT Family Medicine; ATTEND Family Medicine
DX: A41.9 Sepsis, unspecified organism (principal); E87.2 Acidosis; J44.1 Chronic obstructive pulmonary disease with (acute) exacerbation; K83.09 Other cholangitis; N39.0 Urinary tract infection, site not specified; I10 Essential (primary) hypertension; E78.5 Hyperlipidemia, unspecified; E11.9 Type 2 diabetes mellitus without complications; E87.6 Hypokalemia; E05.00 Thyrotoxicosis with diffuse goiter without thyrotoxic crisis or storm; F41.9 Anxiety disorder, unspecified; R65.20 Severe sepsis without septic shock; F32.9 Major depressive disorder, single episode, unspecified; R74.0 Nonspecific elevation of levels of transaminase and lactic acid dehydrogenase [LDH]; F10.10 Alcohol abuse, uncomplicated; D63.1 Anemia in chronic kidney disease; Z90.49 Acquired absence of other specified parts of digestive tract; Z87.11 Personal history of peptic ulcer disease
CPT/HCPCS: 36415; 36416; 51701; 70450; 71045; 74177; 74181; 76705; 80053; 81003; 81015; 82248; 82607; 82728; 82747; 83540; 83550; 83605; 83690; 83735; 83880; 83921; 84100; 84466; 84484; 85007; 85025; 85027; 85610; 85730; 86704; 86706; 86709; 86780; 86850; 86900; 86901; 87040; 87086; 87340; 87521; 87804; 93005; 94640; 96361; 96365; 96366; 96367; A4353; J0692; J0696; J2543; J3370; J3475; J3490; J7050; J7512; J7620; Q9967

== ENCOUNTER 2020-02-06 23:33 | Inpatient (IN) | payer OTHER ==
[2020-02-07] MEDS ORDERED: Potassium Bicarbonate/Cit Ac 25 MEQ TAB PO SCH (00:15)
[2020-02-07 00:40] LABS: Hemoglobin 4.3 g/dL (12.0-16.0)
[2020-02-07 00:42] LABS: Mean Corpuscular HGB CONC 34.5 g/dL (32.0-36.0); Mean Corpuscular Hemoglobin 35.8 pg (27.0-31.0); Mean Platelet Volume 7.9 fL (7.4-10.4); Platelet Count 286 thou/uL (130-400); RBC Distribution Width 13.6 % (11.5-14.5); White Blood Cell (WBC) Count 3.9 thou/uL (4.8-10.8)
[2020-02-07 00:45] LABS: Anion Gap 21 mmol/L (10-20); BUN (Urea Nitrogen) 11 mg/dL (9.8-20.1); Calc. Creatinine Clearance 0 mL/min (70-130); Calcium 9.2 mg/dL (7.8-10.44); Carbon Dioxide 23 mmol/L (22-29); Chloride 97 mmol/L (98-107); Estimated GFR-MDRD Greater than 90; Glucose 90 mg/dL (70-105); Potassium 3.2 mmol/L (3.5-5.1); Sodium 138 mmol/L (136-145)
[2020-02-07] MEDS ORDERED: Senokot S 8.6-50 MG TAB PO PRN (00:49)
[2020-02-07] MEDS ORDERED: Pot Chloride/Pot Bicarb/Cit Ac 25 mEq Effervescent Tablet ONE (01:18)
[2020-02-07 01:30] LABS: #Eosinphils 0.1 thou/uL (0.0-0.7); #Lymphocytes 1.3 thou/uL (1.20-3.40); #Monocytes 0.3 thou/uL (0.11-0.59); #Neutrophils 2.2 thou/uL (1.40-6.50); %Basophils 0.6 % (0.0-1.0); %Eosinophils 1.6 % (0.0-10.0); %Lymphocytes 33.7 % (21.0-51.0); %Monocytes 7.8 % (0.0-10.0); %Neutrophils 56.3 % (42.0-75.0); MDiff Complete? YES; Macrocytosis SLIGHT = 6-15 cells (100X) (0-5/hpf); Platelet Morphology Comment Appears Adequate; Reflex for Review?? YES
[2020-02-07] MEDS ORDERED: Pantoprazole 40 MG VIAL IVP SCH (01:45)
[2020-02-07 02:05] LABS: Magnesium 1.4 mg/dL (1.6-2.6); Phosphorus 3.1 mg/dL (2.3-4.7)
[2020-02-07 02:16] LABS: Ferritin 667.58 ng/mL (10-291)
[2020-02-07] MEDS ORDERED: Magnesium 2 GM/50 ML 2 GM in Premix Bag 1 BAG IVPB SCH (02:30)
[2020-02-07] MEDS ORDERED: Magnesium Sulfate 2 GM in Sodium Chloride 0.9% 100 ML IVPB SCH (02:30)
[2020-02-07] MEDS ORDERED: Multivitamins, Adult 10 ML, Folic Acid 1 MG, Thiamine HCl 100 MG in Dextrose 5 %-0.45 %... IV SCH (02:30)
--- NOTE | 2020-02-07 03:00 | HP ---
CHIEF COMPLAINT: Generalized weakness. HISTORY OF PRESENT ILLNESS: The patient is a 60-year-old female, who initially presented to the outside hospital for generalized weakness. Per nursing staff, apparently, the patient has not been eating very much and has been having generalized body aches and pains and weakness, so she was brought into the ER for further evaluation. She was noted at the outside ER to have hemoglobin of around 4 and 5, so she was given some IV fluids and was transferred here for further evaluation. Upon my evaluation, the patient just keeps yelling, stating that she hurts everywhere and wants to be left alone. The patient is unable to tell me who brought her to the hospital. She states that she came in because she has been feeling weak. She denies any fevers or chills. She states that she had nausea, vomiting all day today; however, no diarrhea or abdominal pain. per records from outside hospital it was noted that pt has been having lots of diarrhea but no nausea or vomiting. PAST MEDICAL HISTORY: As of the following: She has a history of COPD, Graves disease, peptic ulcer disease, and also possible hypertension. PAST SURGICAL HISTORY: She has had , appendectomy, and thyroidectomy. SOCIAL HISTORY: She states that she drinks a few glasses of liquor a day and denies smoking. Denies any drug use. She lives alone. Unable to tell me her code status at this point. REVIEW OF SYSTEMS: All negative except for the ones mentioned above in the HPI. FAMILY HISTORY: The patient does not know. allergies Tylenol meds folic acid 1mg daily pantoprazole 40mg daily Trazodone 100mg bid levothyroxine 150mcg dialy potassium chohliride 20meq daily clonazepam 0.5mg daily allopurinol 100mg bid Physical exam: Temp of 36.3, 80/54 bp, HR of 92, 98% RA general: she is awake and oriented x2, appears cachetic. HEENT: pale conjunctiva and dry mucus membrane, pt has no teeth cv: s1 s2 present no murmurs, sinus lungs: clear on auscultation, no rhonchi or wheezing noted abd: pain on palpation all over abdome, bx2, no guarding ext muscle atrophy noted to lower ext, pedal pulse present neuro: pt is able to move all 4 ext skin: no cuts or bruises noted. LABORATORY DATA: Laboratory results are as of the following; WBCs of 3.9, hemoglobin of 4.3, hematocrit of 12.5, her platelets are 286. Chemistry: Sodium of 136___, potassium of 3.2, BUN of 11, creatinine 0.63. LFTs normal EKG does not appear to have any significant ST elevation or depression. She does have a mildly prolonged QTc. ASSESSMENT AND PLAN: The patient is a 60-year-old female, who presents to the hospital with complaints of generalized weakness. 1. Anemia, unclear at this time. She did have a rectal exam done in the ER and stool for occult blood was sent. There was no juan pablo blood that was noted. The patient was unable to tell me if she takes any ibuprofen or Advil, and also she is not a very great historian. She does have a significant history of alcohol use even in her prior notes. I will put her through NIURKA protocol, put her on a banana bag. We will also put her on a PPI, and I will consult GI for an endoscopy. I do not think at this time she requires any octreotide possibly could have a variceal bleed. I will just start her on some IV Protonix twice a day. She has been typed and screened. We will give her 2 units of PRBCs and continue to monitor her hemoglobin and hematocrit. 2. Severe malnutrition. She has significant muscle wasting to her lower extremities and nursing notified me that per pt's mother she has not been eating very much for about a month. We will also get a nutrition consult for this patient. 3. Hyponatremia and hypomagnesemia. We will replace her electrolytes and continue to monitor. 4. Deep venous thrombosis prophylaxis. We will put the patient on some SCDs. Job ID: [id number] [facility]
[2020-02-07 03:11] LABS: ALT (SGPT) Less than 7 U/L (8-55); AST (SGOT) 9 U/L (5-34); Albumin 3.5 g/dL (3.5-5.0); Alkaline Phosphatase 136 U/L (40-110); Bilirubin, Direct 0.4 mg/dL (0.1-0.3); Protein, Total 6.2 g/dL (6.0-8.3)
[2020-02-07] MEDS ORDERED: Ondansetron PF 4 MG/2 ML Vial IVP PRN (03:37)
[2020-02-07] MEDS: Lorazepam 2 MG/ML VIAL SLOW IVP PRN ×2 (03:38→12:55)
[2020-02-07 03:59] VITALS: BMI 20.5
[2020-02-07] MEDS ORDERED: Dextrose 5% in Water 1,000 ML IV PRN (06:28)
[2020-02-07] MEDS ORDERED: Dextrose 50% Abboject 50 ML SYRINGE IVP PRN (06:28)
[2020-02-07] MEDS ORDERED: HumaLOG 300 UNITS/3 ML VIAL SC PRN ×2 (06:28)
[2020-02-07] MEDS ORDERED: Levothyroxine 150 MCG TAB PO SCH (07:30)
[2020-02-07] MEDS: Cyanocobalamin (Vitamin B-12) 1,000 MCG TAB PO SCH (08:37)
[2020-02-07] MEDS: Folic Acid 1 MG TAB PO SCH (08:37)
[2020-02-07] MEDS: Thiamine 100 MG TAB PO SCH (08:37)
[2020-02-07] MEDS: Multivitamins, Adult 10 ML, Folic Acid 1 MG, Thiamine HCl 100 MG in Dextrose 5 %-0.45 %... IV SCH (09:07)
--- NOTE | 2020-02-07 09:51 | CT ---
PRELIMINARY REPORT/DIRECT RADIOLOGY/EMERGENCY AFTER HOURS PROCEDURE EXAM: CT Abdomen and Pelvis Without Intravenous Contrast CLINICAL HISTORY: TXFR FROM [place]. WEAKNESS, NAUSEA, LOW HGB AND HCT, NO APPETITE TECHNIQUE: Axial computed tomography images of the abdomen and pelvis without intravenous contrast. CONTRAST: None. COMPARISON: None provided. FINDINGS: LUNG BASES: No basilar airspace consolidation or pleural effusion. LIVER: There is fatty infiltration of liver. GALLBLADDER AND BILE DUCTS: Unremarkable. No calcified stone. No ductal dilation. PANCREAS: Unremarkable. SPLEEN: Unremarkable. ADRENAL GLANDS: Unremarkable. KIDNEYS, URETERS, AND BLADDER: Unremarkable. No hydronephrosis or nephrolithiasis. No ureteral or oseas dder calculi. STOMACH AND BOWEL: No obstruction. No wall thickening. No CT evidence of colitis or acute diverticuli tis. APPENDIX: The appendix is not readily identified. There is no inflammation of fat appreciated about t he cecum or secondary signs to suggest acute appendicitis. PERITONEUM: No free fluid. No free air. LYMPH NODES: No lymphadenopathy. REPRODUCTIVE: The uterus and adnexa are grossly normal. VASCULATURE: No aortic aneurysm. ABDOMINAL WALL AND SOFT TISSUES: Fat-containing periumbilical hernia is present. BONES: No fracture or suspicious osseous abnormality. IMPRESSION: No acute abnormality. ELECTRONICALLY SIGNED BY: Katelyn Timmons MD Feb 07, 2020 3:02:43 AM CDT FINAL REPORT EMERGENT AFTER HOURS CT ABDOMEN AND PELVIS: IMPRESSION: Agree with the preliminary interpretation. Comparison is made with the examination dated 02/06/2020. POS: [id number]
[2020-02-07 10:44] LABS: ALT (SGPT) Less than 7 U/L (8-55); AST (SGOT) 10 U/L (5-34); Alkaline Phosphatase 114 U/L (40-110); Bilirubin, Direct 0.9 mg/dL (0.1-0.3); Bilirubin, Total 1.6 mg/dL (0.2-1.2); Protein, Total 5.1 g/dL (6.0-8.3)
[2020-02-07 10:46] LABS: Anion Gap 15 mmol/L (10-20); BUN (Urea Nitrogen) 12 mg/dL (9.8-20.1); Calc. Creatinine Clearance 87 mL/min (70-130); Calcium 8.7 mg/dL (7.8-10.44); Carbon Dioxide 25 mmol/L (22-29); Chloride 101 mmol/L (98-107); Estimated GFR-MDRD Greater than 90; Glucose 114 mg/dL (70-105); Hemoglobin 7.7 g/dL (12.0-16.0); Magnesium 1.9 mg/dL (1.6-2.6); Mean Corpuscular HGB CONC 34.3 g/dL (32.0-36.0); Mean Corpuscular Hemoglobin 33.8 pg (27.0-31.0); Mean Corpuscular Volume 98.6 fL (78.0-98.0); Platelet Count 253 thou/uL (130-400); RBC Distribution Width 13.6 % (11.5-14.5); Red Blood Cell (RBC) Count 2.26 mill/uL (4.20-5.40); Sodium 138 mmol/L (136-145); White Blood Cell (WBC) Count 4.5 thou/uL (4.8-10.8)
[2020-02-07 10:52] LABS: Potassium 2.9 mmol/L (3.5-5.1)
[2020-02-07] MEDS ORDERED: GoLYTELY 4,000 ml Bottle PO SCH (11:15)
--- NOTE | 2020-02-07 11:56 | CON ---
DATE OF CONSULTATION: 02/07/2020 REASON FOR CONSULTATION: Symptomatic anemia. CONSULTING PROVIDER: Dr. Adelaida Case. HISTORY OF PRESENT ILLNESS: The patient is a 60-year-old female with past medical history of COPD, Graves disease, hypertension, diabetes, anxiety, possible peptic ulcer disease, questionable alcohol abuse and possible gout, presenting with complaints of generalized weakness. The patient states that for the last 1 to 2 months, she has been relatively bed-bound with inability to ambulate effectively at home. She also states that over the last 2 to 3 weeks, she has been having decreased energy associated with generalized weakness to both her upper and lower extremities. She has also been experiencing increased shortness of breath, both at rest and on exertion, although her periods of exertion are minimalized due to her bed-bound status at home (the patient's primary caregiver is her mother, who provides total care at home). However, with the worsening of the above symptoms, it prompted her to seek healthcare assistance within [place] and ultimately transferred to [facility] for further evaluation. While in the [place] ER, she was noted to have a severe anemia and ultimately transferred to [facility] for evaluation for this condition. Upon further questioning, the patient does endorse increasing lower extremity edema of the bilateral lower feet, nausea and vomiting with nonbloody emesis, symptoms of regurgitation and weight loss of 100 pounds over the last year unintentionally. However, she currently denies any hematemesis, melena, hematochezia, fevers, chills, abdominal pain, dysphagia, or odynophagia. Of note, the patient was admitted to [facility] in October of 2019, with relatively similar complaints when compared to this admission, she was noted to have a significant anemia at that time with a macrocytic component, but was felt due to her chronic alcohol abuse at the time and was not evaluated further. REVIEW OF SYSTEMS: A 10-category review of systems was obtained with all responses negative except for the pertinent positives as listed in HPI. However, her review of systems may be unreliable due to her altered mental status. PAST MEDICAL HISTORY: As per HPI. PAST SURGICAL HISTORY: , appendectomy, and thyroidectomy. FAMILY HISTORY: Unknown (the patient could not recall any family history of malignancies). SOCIAL HISTORY: She smokes approximately one-half pack per day of a dip tobacco, but denies any illicit drug use. She also states that she drinks alcohol occasionally, but could not quantify the amounts or types of alcohol drink. OUTPATIENT MEDICATIONS: Reviewed. ALLERGIES: NO KNOWN DRUG ALLERGIES. PHYSICAL EXAMINATION: VITAL SIGNS: Temperature 97.5, pulse 75, blood pressure 100/68, respiratory rate 18, and saturating 98% on room air. GENERAL: The patient is lying in bed, in no acute distress. Alert and oriented x2. Cachectic in appearance. HEENT: Normocephalic and atraumatic. NECK: Supple. No JVD or scleral icterus noted. Poor dentition with few teeth left. CARDIOVASCULAR: Regular rate and rhythm with no discernible murmurs, gallops, or rubs. RESPIRATORY: Clear to auscultation bilaterally with no discernible wheezes or rales. ABDOMEN: Normoactive bowel sounds. Soft and nondistended. Tenderness to palpation in the right upper quadrant. EXTREMITIES: No cyanosis, clubbing, or edema. Cachectic bilateral lower extremities with significant muscle atrophy. LABORATORY DATA: CBC with a white blood cell count of 3.9, hemoglobin 4.3, hematocrit 12.5, platelets 286, MCV 104, and RDW 13.6. Chemistry with a sodium of 138, potassium 3.2, chloride 97, CO2 of 23, BUN 11, creatinine 0.63, glucose 90, AST 9, ALT less than 7, alkaline phosphatase 136, total bilirubin 1.0, and albumin 3.5. Iron 227, ferritin 667, and FOBT negative. IMAGING DATA: CT scan was obtained on October 15, [address] abdomen and pelvis showing submucosal edema and circumferential wall thickening of the cecum in the ascending colon without evidence of obstruction, changes consistent with hepatosteatosis was also noted at that time. Repeat CT scan on February 07, 2020, showed no intraabdominal abnormality with no residual inflammation of the colon. ASSESSMENT AND PLAN: The patient is a 60-year-old female with past medical history of chronic obstructive pulmonary disease, Graves disease, hypertension, diabetes, anxiety, possible peptic ulcer disease, alcohol abuse, and questionable gout, presenting with severe symptomatic anemia. Symptomatic anemia: The patient has presented to the hospital on 2 different occasions now with severe anemia on both occasions with a hemoglobin roughly around 4.5. On both hospitalization, she was noted to have a macrocytic component to her anemia as well as a decreased RDW, which lends itself more towards a diagnosis of alcohol abuse, especially given her higher consumptions in the past. However, she now has a repeat significant decrease in her H and H as well as downtrending of her MCV, which is slightly concerning for worsening anemia versus gastrointestinal blood loss. However, the patient has not had any observable evidence of gastrointestinal blood loss either at home and during this admission with her iron slightly elevated and ferritin elevated, the likelihood of an iron deficiency anemia is incredibly low (indicative of chronic gastrointestinal bleeding). However, the patient did receive blood product during this admission and it is unclear if she received blood prior to obtaining these labs. At this time, the differential could include esophagitis, gastritis, duodenitis, peptic ulcer disease, arteriovenous malformation, Dieulafoy lesion, gastrointestinal neoplasm, medication-induced anemia, chronic alcohol abuse, or other underlying malignancy. At this time, given the macrocytic component of her anemia and lack of overt gastrointestinal bleeding, the likelihood of a gastrointestinal bleeding source is low; however, given her repeated decreased H and H, intraluminal evaluation is indicated at this time. Recommendations; 1. We will continue to trend her H and H and transfuse as necessary to maintain an H and H of 7/. 2. Continue to monitor clinically for signs of active gastrointestinal bleeding. 3. Would avoid any anticoagulation in light of possible bleeding source. 4. Would start the patient on a clear liquid diet today with plans for GoLYTELY prep tonight in preparation for both esophagogastroduodenoscopy and colonoscopy tomorrow. 5. Further recommendations to follow esophagogastroduodenoscopy and colonoscopy. However, if there are no over findings of her anemia on the upper and lower endoscopy, I would strongly consider a non-gastrointestinal source of her anemia. 6. Would discontinue her allopurinol given its propensity to cause a macrocytic anemia as well as an aplastic anemia. We will continue to follow. Please call with any questions. Job ID: [id number]
[2020-02-07] MEDS ORDERED: Potassium Chloride 20 MEQ TAB PO SCH (12:15)
[2020-02-07] MEDS: Nicotine 14 MG PATCH TOP SCH (12:55)
--- NOTE | 2020-02-07 14:48 | PDOC.HOSPP ---
- Subjective Encounter Date: 02/07/20 Encounter Time: 11:00 Subjective: The patinet reports her dizziness has improved. Weakness has improved. She has no nausea or vomiting or abdominal pain. No blood in hers tools - Objective Vital Signs & Weight: Vital Signs (12 hours) Temp Pulse Pulse Resp BP BP BP 02/07/20 12:00 94/61 02/07/20 10:58 98.1 F 77 18 94/61 02/07/20 09:32 97.5 F L 75 18 100/68 02/07/20 08:00 100/68 02/07/20 06:50 97.8 F 75 18 111/75 02/07/20 04:45 97.3 F L 81 18 91/59 L 02/07/20 04:30 97.3 F L 82 18 89/54 L 02/07/20 03:05 97.6 F 92 16 99/66 99/66 Pulse Ox 02/07/20 12:00 02/07/20 10:58 97 02/07/20 09:32 98 02/07/20 08:00 97 02/07/20 06:50 98 02/07/20 04:45 98 02/07/20 04:30 100 02/07/20 03:05 100 Weight Admit Weight 123 lb 0.287 oz Weight 123 lb 0.287 oz I&O: 02/06/20 02/07/20 02/08/20 06:59 06:59 06:59 Intake Total 400 Output Total 30 Balance 370 Result Diagrams: 02/07/20 10:13 02/07/20 10:13 Additional Labs: Accuchecks 02/07/20 11:04 POC Glucose 130 H Hospitalist ROS - Review of Systems Constitutional: denies: fever, chills - Medication Medications: Active Medications Generic Name Dose Route Start Last Admin Trade Name Wardq PRN Reason Stop Dose Admin Cyanocobalamin 1,000 mcg 02/07/20 09:00 02/07/20 08:37 Vitamin B-12 PO 1,000 mcg DAILY MILY Administration Folic Acid 1 mg 02/07/20 09:00 02/07/20 08:37 Folvite PO 1 mg DAILY MILY Administration Multivitamins 10 ml/ Folic 1,011.2 mls @ 75 mls/hr 02/07/20 08:00 02/07/20 09 :07 Acid 1 mg/ Thiamine HCl 100 mg IV 1,011.2 mls / Dextrose/Sodium Chloride Q24HR MILY Administration Lorazepam 0.5 mg 02/07/20 01:39 02/07/20 12:55 Ativan SLOW IVP 0.5 mg Q6H PRN Administration Alcohol Withdrawal Nicotine 14 mg 02/07/20 13:00 02/07/20 12:55 Nicoderm Patch TOP 14 mg Q24HR MILY Administration Ondansetron HCl 4 mg 02/07/20 03:37 02/07/20 03:51 Zofran IVP 4 mg Q6H PRN Administration Nausea/Vomiting Potassium Chloride 40 meq 02/07/20 12:15 02/07/20 12:55 K-Dur PO 02/07/20 15:00 40 meq NOW MILY Administration Sodium Chloride 10 ml 02/07/20 09:00 02/07/20 09:08 Flush - Normal Saline IVF 10 ml Q12HR MILY Administration Thiamine HCl 100 mg 02/07/20 09:00 02/07/20 08:37 Thiamine PO 100 mg DAILY MILY Administration - Exam General Appearance: NAD, awake alert Eye: PERRL, anicteric sclera ENT: normocephalic atraumatic, no oropharyngeal lesions Neck: supple, no JVD Heart: RRR, no murmur, no gallops, no rubs Respiratory: CTAB, no wheezes, no rales, no ronchi Gastrointestinal: soft, non-tender, non-distended, normal bowel sounds Extremities: no cyanosis, no clubbing, no edema Skin: normal turgor, no lesions, no rashes Hosp A/P - Plan This is 60 year old male with past medical history of hypothyroidism, depression coming in with severe anemia Severe anemia - Hb 4 on admission, s/p transfusion with improvement to 7 - GI plans to do EGD/colonoscopy tomorrow - clear liquid diet for now - B12/folate normal - iron studies consistent with anemia of chronic disease Transaminitis - possibly from anemia? Downtrending - check LDH and haptoglobin Leukopenia - no fevers, will monitor Hypokalemia - potassium 2.9, s/p 40 meq potassium. Will recheck BMP in evening
[2020-02-07 17:44] LABS: Magnesium 1.7 mg/dL (1.6-2.6); Potassium 3.3 mmol/L (3.5-5.1)
[2020-02-07] MEDS: Pantoprazole 40 MG VIAL IVP SCH (20:02)
[2020-02-08] MEDS: Acetaminophen 325 MG TAB PO PRN (02:04)
[2020-02-08 05:58] LABS: #Eosinphils 0.2 thou/uL (0.0-0.7); #Lymphocytes 1.5 thou/uL (1.20-3.40); #Monocytes 0.4 thou/uL (0.11-0.59); #Neutrophils 1.7 thou/uL (1.40-6.50); %Basophils 0.6 % (0.0-1.0); %Lymphocytes 38.2 % (21.0-51.0); %Monocytes 11.4 % (0.0-10.0); %Neutrophils 45.8 % (42.0-75.0); Hemoglobin 7.4 g/dL (12.0-16.0); Mean Corpuscular HGB CONC 35.2 g/dL (32.0-36.0); Mean Corpuscular Hemoglobin 35.1 pg (27.0-31.0); Mean Corpuscular Volume 99.5 fL (78.0-98.0); Mean Platelet Volume 7.9 fL (7.4-10.4); Platelet Count 235 thou/uL (130-400); RBC Distribution Width 13.9 % (11.5-14.5); Red Blood Cell (RBC) Count 2.11 mill/uL (4.20-5.40); White Blood Cell (WBC) Count 3.8 thou/uL (4.8-10.8)
[2020-02-08 06:26] LABS: ALT (SGPT) Less than 7 U/L (8-55); AST (SGOT) 11 U/L (5-34); Albumin 2.8 g/dL (3.5-5.0); Alkaline Phosphatase 109 U/L (40-110); Anion Gap 11 mmol/L (10-20); BUN (Urea Nitrogen) 7 mg/dL (9.8-20.1); Bilirubin, Total 0.7 mg/dL (0.2-1.2); Calc. Creatinine Clearance 92 mL/min (70-130); Calcium 8.8 mg/dL (7.8-10.44); Carbon Dioxide 30 mmol/L (22-29); Chloride 101 mmol/L (98-107); Estimated GFR-MDRD Greater than 90; Glucose 84 mg/dL (70-105); Protein, Total 4.8 g/dL (6.0-8.3); Sodium 139 mmol/L (136-145)
[2020-02-08 06:30] LABS: Potassium 2.7 mmol/L (3.5-5.1)
[2020-02-08] MEDS: Multivitamins, Adult 10 ML, Folic Acid 1 MG, Thiamine HCl 100 MG in Dextrose 5 %-0.45 %... IV SCH (07:58)
[2020-02-08] MEDS: Potassium Chloride 10 MEQ/100 ML PREMIX BAG IVPB SCH ×4 (08:49→22:40)
[2020-02-08] MEDS: Pantoprazole 40 MG VIAL IVP SCH (08:49)
[2020-02-08] MEDS ORDERED: PROPOFOL 200 MG/20 ML VIAL ONE (09:58)
[2020-02-08] MEDS ORDERED: EPHEDRINE 25 MG/5 ML SYRINGE ONE (09:58)
[2020-02-08] MEDS ORDERED: Lidocaine 1% PF 5 ML VIAL ONE (09:58)
[2020-02-08] MEDS: Thiamine 100 MG TAB PO SCH (10:51)
[2020-02-08] MEDS: Cyanocobalamin (Vitamin B-12) 1,000 MCG TAB PO SCH (10:51)
[2020-02-08] MEDS: Folic Acid 1 MG TAB PO SCH (10:51)
[2020-02-08] MEDS ORDERED: Promethazine HCl 25 MG/ML VIAL IM PRN (11:01)
[2020-02-08] MEDS ORDERED: Promethazine HCl 25 MG/ML VIAL SLOW IVP PRN (11:01)
[2020-02-08] MEDS ORDERED: Ondansetron HCl/PF 4 MG/2 ML Vial IVP PRN (11:01)
--- NOTE | 2020-02-08 11:43 | OP ---
DATE OF PROCEDURE: 02/08/2020 PROCEDURES PERFORMED: 1. Esophagogastroduodenoscopy. 2. Colonoscopy with snare polypectomy. PREMEDICATION: Given by Anesthesiology Department. PREPROCEDURE DIAGNOSIS: Severe symptomatic anemia with a hemoglobin of 4 g/dL. POSTPROCEDURE DIAGNOSES: 1. Normal upper endoscopy. 2. A 10 mm sigmoid polyp removed. 3. Grade 1 internal hemorrhoids. DESCRIPTION OF PROCEDURE: Written consents were obtained prior to procedure. After adequate sedation, the forward-viewing endoscope was advanced down in the stomach under direct vision to the third portion of duodenum. The duodenum and the bulb appeared normal. Pylorus was patent. The gastric antrum, body, fundus, and cardia, all appeared normal. Retroflexion did not show any abnormality. The GE junction with regular Z-line was noted at 40 cm. The esophagus appeared normal. The patient was then repositioned for colon exam. Digital exam performed was normal. The endoscope was advanced to the cecum. The quality of the bowel prep was good. The cecum including the ileocecal valve and appendiceal orifice were visualized and appeared normal. The ascending colon, hepatic flexure, transverse colon, splenic flexure, and descending colon appeared normal. A few small diverticula were noted in the sigmoid colon. A 10 mm semi-sessile polyp was noted and was removed with snare electrocautery with good hemostasis. The polyp was retrieved. The rectal vault appeared normal. Retroflexion showed grade 1 internal hemorrhoids. The instrument was then fully removed. The patient tolerated the procedure well. ASSESSMENT: 1. No source of enteric bleeding noted on upper endoscopy and colonoscopy. 2. Sigmoid polyp removed. PLAN: Await biopsy results, we will follow up on histopathology. Job ID: [id number]
[2020-02-08] MEDS: Nicotine 14 MG PATCH TOP SCH (14:50)
[2020-02-08] MEDS: Lorazepam 2 MG/ML VIAL SLOW IVP PRN ×2 (14:52→23:08)
--- NOTE | 2020-02-08 16:36 | PDOC.HOSPP ---
- Subjective Encounter Date: 02/08/20 Encounter Time: 12:00 Subjective: CC: anemia The patient is s/p endoscopy and colonoscopy. Says they found nothing. She is asking where her mother is and when her mother is picking her up. She denies abdominal pain, nausea, vomiting. She says she still feels dizzy some. - Objective Vital Signs & Weight: Vital Signs (12 hours) Temp Pulse Resp BP BP Pulse Ox 02/08/20 12:00 97/69 02/08/20 11:52 98.4 F 73 18 97/69 95 02/08/20 08:00 98.5 F 82 16 89/68 L 99/62 96 Weight Admit Weight 123 lb 0.287 oz Weight 123 lb 0.287 oz I&O: 02/07/20 02/08/20 02/09/20 06:59 06:59 06:59 Intake Total 400 5350 Output Total 30 200 Balance 370 5150 Result Diagrams: 02/08/20 05:23 02/08/20 05:22 Additional Labs: Accuchecks 02/08/20 02/07/20 02/07/20 04:14 19:20 16:37 POC Glucose 105 132 H 131 H Hospitalist ROS - Review of Systems Constitutional: denies: fever, chills - Medication Medications: Active Medications Generic Name Dose Route Start Last Admin Trade Name Freq PRN Reason Stop Dose Admin Acetaminophen 650 mg 02/07/20 00:49 02/08/20 02:04 Tylenol PO 650 mg Q4H PRN Administration Headache/Fever/Mild Pain (1-3) Cyanocobalamin 1,000 mcg 02/07/20 09:00 02/08/20 10:51 Vitamin B-12 PO Not Given DAILY [facility] Folic Acid 1 mg 02/07/20 09:00 02/08/20 10:51 Folvite PO Not Given DAILY [facility] Multivitamins 10 ml/ Folic 1,011.2 mls @ 75 mls/hr 02/07/20 08:00 02/08/20 07 :58 Acid 1 mg/ Thiamine HCl 100 mg IV 1,011.2 mls / Dextrose/Sodium Chloride Q24HR MILY Administration Lorazepam 0.5 mg 02/07/20 01:39 02/08/20 14:52 Ativan SLOW IVP 0.5 mg Q6H PRN Administration Alcohol Withdrawal Nicotine 14 mg 02/07/20 13:00 02/08/20 14:50 Nicoderm Patch TOP 14 mg Q24HR MILY Administration Ondansetron HCl 4 mg 02/07/20 03:37 02/07/20 03:51 Zofran IVP 4 mg Q6H PRN Administration Nausea/Vomiting Potassium Chloride 10 meq 02/08/20 16:00 02/08/20 14:51 Kcl IVPB 02/09/20 00:01 10 meq Q4H MILY Administration Sodium Chloride 10 ml 02/07/20 09:00 02/08/20 10:51 Flush - Normal Saline IVF 10 ml Q12HR MILY Administration Thiamine HCl 100 mg 02/07/20 09:00 02/08/20 10:51 Thiamine PO Not Given DAILY MILY - Exam General Appearance: NAD, awake alert Eye: PERRL, anicteric sclera ENT: normocephalic atraumatic, no oropharyngeal lesions Neck: no JVD Heart: RRR, no murmur, no gallops, no rubs Respiratory: CTAB, no wheezes, no rales, no ronchi Gastrointestinal: soft, non-tender, non-distended, normal bowel sounds Extremities: no cyanosis, no clubbing, no edema Skin: normal turgor, no lesions, no rashes Neurological: cranial nerve grossly intact, normal sensation to touch, no focal deficits, no new deficit Hosp A/P - Plan This is 60 year old male with past medical history of hypothyroidism, depression coming in with severe anemia Severe macrocytic anemia - Hb 4 on admission, s/p transfusion with improvement to 7 - EGD showed no abnormality. Patient had colonoscopy and is s/p removal - clear liquid diet for now - B12/folate normal - iron studies consistent with anemia of chronic disease. Ferritin high. Will check iron sat - TSH normal Acute encephalopathy - likely from sedation - will monitor Hypokalemia - potassium 2.7, ordered IV potassium. Will recheck BMP Transaminitis - possibly from anemia? Downtrending - LDH normal, hepatoglobin pending. Leukopenia - WBC 3.8, will monitor Hypokalemia - potassium 2.9, s/p 40 meq potassium. Will recheck BMP in evening Dispo: likely d/c in am
[2020-02-08] MEDS ORDERED: Sodium Chloride 0.9% 1,000 ML IV SCH (19:45)
[2020-02-08 20:18] LABS: Mean Corpuscular Hemoglobin 35.1 pg (27.0-31.0); Mean Platelet Volume 8.1 fL (7.4-10.4); Platelet Count 218 thou/uL (130-400); RBC Distribution Width 13.8 % (11.5-14.5); White Blood Cell (WBC) Count 4.8 thou/uL (4.8-10.8)
[2020-02-08 20:36] LABS: Anion Gap 11 mmol/L (10-20); BUN (Urea Nitrogen) 5 mg/dL (9.8-20.1); Calc. Creatinine Clearance 93 mL/min (70-130); Calcium 8.4 mg/dL (7.8-10.44); Carbon Dioxide 26 mmol/L (22-29); Chloride 102 mmol/L (98-107); Estimated GFR-MDRD Greater than 90; Glucose 123 mg/dL (70-105); Sodium 136 mmol/L (136-145)
[2020-02-08] MEDS ORDERED: Sodium Chloride 0.9% 500 ML IV SCH (20:45)
[2020-02-08 20:48] LABS: Potassium 2.6 mmol/L (3.5-5.1)
[2020-02-08] MEDS ORDERED: Magnesium 2 GM/50 ML 2 GM in Premix Bag 1 BAG IVPB SCH (21:00)
[2020-02-08] MEDS ORDERED: Potassium Chloride 20 MEQ TAB PO SCH (22:30)
[2020-02-08] MEDS ORDERED: Potassium Chloride 10 MEQ/100 ML PREMIX BAG IVPB SCH (23:00)
[2020-02-09 06:03] LABS: Hemoglobin 9.8 g/dL (12.0-16.0); Mean Corpuscular HGB CONC 34.6 g/dL (32.0-36.0); Mean Corpuscular Hemoglobin 34.2 pg (27.0-31.0); Mean Corpuscular Volume 98.7 fL (78.0-98.0); Platelet Count 236 thou/uL (130-400); RBC Distribution Width 13.9 % (11.5-14.5); Red Blood Cell (RBC) Count 2.87 mill/uL (4.20-5.40); White Blood Cell (WBC) Count 6.6 thou/uL (4.8-10.8)
[2020-02-09 06:25] LABS: Anion Gap 11 mmol/L (10-20); BUN (Urea Nitrogen) 5 mg/dL (9.8-20.1); Calc. Creatinine Clearance 92 mL/min (70-130); Calcium 8.7 mg/dL (7.8-10.44); Carbon Dioxide 26 mmol/L (22-29); Chloride 106 mmol/L (98-107); Estimated GFR-MDRD Greater than 90; Glucose 134 mg/dL (70-105); Magnesium 1.7 mg/dL (1.6-2.6); Potassium 3.5 mmol/L (3.5-5.1); Sodium 139 mmol/L (136-145)
[2020-02-09 08:13] LABS: Bilirubin Negative (Negative); Blood, Urine Negative (Negative); Glucose, Urine (Dipstick) Negative (Negative); Leukocyte Negative (Negative); Nitrite Negative (Negative); Protein, Urine (Dipstick) Negative (Neg-Trace); Urobilinogen 0.2 mg/dL (Less than 2)
[2020-02-09] MEDS: Thiamine 100 MG TAB PO SCH (08:17)
[2020-02-09] MEDS: Folic Acid 1 MG TAB PO SCH (08:18)
[2020-02-09] MEDS: Cyanocobalamin (Vitamin B-12) 1,000 MCG TAB PO SCH (08:18)
[2020-02-09 08:30] LABS: Clarity Clear (Clear)
[2020-02-09 08:32] LABS: RBC/HPF 0-3 HPF (0-3)
[2020-02-09 08:33] LABS: Bacteria/HPF None Seen HPF (None Seen); Urine Culture Reflex No No; WBC/HPF 0-3 HPF (0-3)
[2020-02-09] MEDS: Multivitamins, Adult 10 ML, Folic Acid 1 MG, Thiamine HCl 100 MG in Dextrose 5 %-0.45 %... IV SCH (08:36)
[2020-02-09] MEDS: Acetaminophen 325 MG TAB PO PRN (08:36)
[2020-02-09] MEDS: Nicotine 14 MG PATCH TOP SCH (12:52)
--- NOTE | 2020-02-09 13:28 | PRG ---
DATE OF SERVICE: 02/09/2020 SUBJECTIVE: Ms. Daniel is eating well. She states she has no nausea or vomiting. She is very hungry. She underwent upper and lower endoscopy yesterday and has no complaints or pain. She has had no bleeding. She may be going home today. MEDICATIONS: 1. Tylenol. 2. B12. 3. Folate. 4. Insulin sliding scale. 5. Lorazepam. 6. Banana bag. 7. Nicoderm patch. 8. Zofran. 9. Senna. 10. Thiamine. OBJECTIVE: VITAL SIGNS: Temperature is 98, pulse 77, blood pressure 93/60. GENERAL: She has dry skin, loss of eyebrows. ABDOMEN: Soft, nontender. EXTREMITIES: Reveal no clubbing, cyanosis, or edema. LABORATORY DATA: TSH is 0.4. Folate greater than 76. B12 is 420, it was 296 in October. Albumin is 2.8, total protein 4.8. AST and ALT were less than 15. Bilirubin 0.7, ferritin 667, TIBC 138 in October, not checked on this admission. Iron 227, it is unclear if that was taken before after transfusion. Abdominal CAT scan on this admission diagnostic procedures. The patient had upper and lower endoscopy on 02/08/2020 with normal EGD. A 10 mm sigmoid polyp removed. Grade 1 internal hemorrhoids. No source of bleeding or anemia was identified. ASSESSMENT: 1. Anemia of unclear etiology, not likely related to GI bleeding. Iron and B12, normal. This may be related to alcohol abuse. She drinks 4 to 6 glasses of wine per day. I have recommended she stop that. 2. Normal iron and B12 levels. 3. Malnutrition with low albumin and total protein. No signs of globulin gap or myeloma. 4. 10 mm sigmoid polyp. Pathology pending. RECOMMENDATIONS: 1. Follow up with Dr. Cuellar with regard to colon pathology in 1 week that will determine need for repeat endoscopies. 2. Probably it would be reasonable looking at her home situation. I recommend she definitely decrease alcohol. She is started on dietary supplements. Encourage to eat high-protein diet. 3. She is to follow up her PCP, which she gets home to monitor hemoglobin. She is not likely to follow up in our office due to this the chart my office. Job ID: [id number]
--- NOTE | 2020-02-09 17:43 | PDOC.HOSPP ---
- Subjective Encounter Date: 02/09/20 Encounter Time: 09:30 Subjective: The patient is doing well, no longer feels dizzy. PT saw patient and recommended rehab. Referral sent for home health vs rehab - Objective Vital Signs & Weight: Vital Signs (12 hours) Temp Pulse Resp BP BP BP BP 02/09/20 16:00 91/59 L 02/09/20 15:54 97.7 F 72 16 02/09/20 12:00 92/60 02/09/20 11:34 98.0 F 77 16 02/09/20 09:59 93/60 93/60 103/70 02/09/20 08:36 02/09/20 08:32 98.1 F 86 16 02/09/20 08:00 114/83 BP Pulse Ox 02/09/20 16:00 02/09/20 15:54 91/59 L 97 02/09/20 12:00 02/09/20 11:34 92/60 100 02/09/20 09:59 02/09/20 08:36 98 02/09/20 08:32 114/83 98 02/09/20 08:00 Weight Admit Weight 123 lb 0.287 oz Weight 123 lb 0.287 oz I&O: 02/08/20 02/09/20 02/10/20 06:59 06:59 06:59 Intake Total 5350 2540 Output Total 200 50 Balance 5150 2490 Result Diagrams: 02/09/20 05:47 02/09/20 05:47 Additional Labs: Accuchecks 02/09/20 02/09/20 02/09/20 15:58 11:38 04:53 POC Glucose 112 H 194 H 145 H 02/08/20 19:16 POC Glucose 391 H Hospitalist ROS - Review of Systems Constitutional: denies: fever, chills - Medication Medications: Active Medications Generic Name Dose Route Start Last Admin Trade Name Freq PRN Reason Stop Dose Admin Acetaminophen 650 mg 02/07/20 00:49 02/09/20 08:36 Tylenol PO 650 mg Q4H PRN Administration Headache/Fever/Mild Pain (1-3) Cyanocobalamin 1,000 mcg 02/07/20 09:00 02/09/20 08:18 Vitamin B-12 PO 1,000 mcg DAILY MILY Administration Folic Acid 1 mg 02/07/20 09:00 02/09/20 08:18 Folvite PO 1 mg DAILY MILY Administration Multivitamins 10 ml/ Folic 1,011.2 mls @ 75 mls/hr 02/07/20 08:00 02/09/20 08 :36 Acid 1 mg/ Thiamine HCl 100 mg IV 1,011.2 mls / Dextrose/Sodium Chloride Q24HR MILY Administration Lorazepam 0.5 mg 02/07/20 01:39 02/08/20 23:08 Ativan SLOW IVP 0.5 mg Q6H PRN Administration Alcohol Withdrawal Nicotine 14 mg 02/07/20 13:00 02/09/20 12:52 Nicoderm Patch TOP 14 mg Q24HR MILY Administration Ondansetron HCl 4 mg 02/07/20 03:37 02/07/20 03:51 Zofran IVP 4 mg Q6H PRN Administration Nausea/Vomiting Sodium Chloride 10 ml 02/07/20 09:00 02/09/20 08:19 Flush - Normal Saline IVF Not Given Q12HR MILY Thiamine HCl 100 mg 02/07/20 09:00 02/09/20 08:17 Thiamine PO 100 mg DAILY MILY Administration - Exam General Appearance: NAD, awake alert Eye: PERRL, anicteric sclera ENT: normocephalic atraumatic, no oropharyngeal lesions Neck: no JVD Heart: RRR, no murmur, no gallops, no rubs Respiratory: CTAB, no wheezes, no rales, no ronchi Gastrointestinal: soft, non-tender, non-distended, normal bowel sounds Extremities: no cyanosis, no clubbing, no edema Skin: normal turgor, no lesions, no rashes Neurological: cranial nerve grossly intact, normal sensation to touch, no focal deficits, no new deficit Hosp A/P - Plan This is 60 year old male with past medical history of hypothyroidism, depression coming in with severe anemia Severe macrocytic anemia - Hb 4 on admission, s/p transfusion with improvement to 7 - EGD showed no abnormality. Patient had colonoscopy and is s/p removal. Biopsy negative for cancer - regular diet - B12/folate normal - iron studies consistent with anemia of chronic disease. Ferritin high. Will check iron sat - TSH normal Acute encephalopathy - likely from sedation - will monitor Hypokalemia - resolved Transaminitis - possibly from anemia? Downtrending - LDH normal, hepatoglobin pending. Leukopenia - resolved Dispo: likely d/c in am pending placement rehab vs home health
[2020-02-09] MEDS: Lorazepam 2 MG/ML VIAL SLOW IVP PRN (21:10)
[2020-02-10 05:38] LABS: Hemoglobin 8.9 g/dL (12.0-16.0); Mean Corpuscular HGB CONC 33.9 g/dL (32.0-36.0); Mean Platelet Volume 7.9 fL (7.4-10.4); Platelet Count 239 thou/uL (130-400); RBC Distribution Width 13.8 % (11.5-14.5); Red Blood Cell (RBC) Count 2.61 mill/uL (4.20-5.40); White Blood Cell (WBC) Count 5.3 thou/uL (4.8-10.8)
[2020-02-10 05:59] LABS: Anion Gap 10 mmol/L (10-20); BUN (Urea Nitrogen) 5 mg/dL (9.8-20.1); Calc. Creatinine Clearance 102 mL/min (70-130); Carbon Dioxide 25 mmol/L (22-29); Chloride 107 mmol/L (98-107); Estimated GFR-MDRD Greater than 90; Sodium 139 mmol/L (136-145)
[2020-02-10 06:00] LABS: Calcium 8.4 mg/dL (7.8-10.44); Glucose 118 mg/dL (70-105); Iron 42 ug/dL (50-170); Iron Binding Capacity, Total 166 mcg/dL (265-497)
[2020-02-10 07:39] VITALS: TEMP 98
[2020-02-10] MEDS: Cyanocobalamin (Vitamin B-12) 1,000 MCG TAB PO SCH (08:04)
[2020-02-10] MEDS: Folic Acid 1 MG TAB PO SCH (08:05)
[2020-02-10] MEDS: Thiamine 100 MG TAB PO SCH (08:05)
[2020-02-10] MEDS: Multivitamins, Adult 10 ML, Folic Acid 1 MG, Thiamine HCl 100 MG in Dextrose 5 %-0.45 %... IV SCH (08:05)
[2020-02-10] MEDS ORDERED: Potassium Chloride 20 MEQ TAB PO SCH (08:15)
[2020-02-10] MEDS: Nicotine 14 MG PATCH TOP SCH (12:00)
[2020-02-10 15:57] VITALS: BP 93/59
[2020-02-10] MEDS: Acetaminophen 325 MG TAB PO PRN (15:57)
--- NOTE | 2020-02-10 16:59 | PDOC.HOSPP ---
- Subjective Encounter Date: 02/10/20 Encounter Time: 09:00 Subjective: The patient is doing well with no complaints. States she did well with PT yesterday. She does not want rehab and wants to go home. She is having difficulty finding a ride home because she lives 2 hours away and her mom is 80 years old - Objective Vital Signs & Weight: Vital Signs (12 hours) Temp Pulse Resp BP BP Pulse Ox 02/10/20 16:00 93/59 L 02/10/20 15:51 98 F 77 17 93/59 L 97 02/10/20 12:00 108/75 02/10/20 11:00 98 F 77 16 108/75 97 02/10/20 08:04 98 02/10/20 08:00 104/60 02/10/20 07:36 98 F 76 17 104/60 98 Weight Admit Weight 123 lb 0.287 oz Weight 123 lb 0.287 oz I&O: 02/09/20 02/10/20 02/11/20 06:59 06:59 06:59 Intake Total 2540 480 Output Total 50 220 600 Balance 2490 260 -600 Result Diagrams: 02/10/20 05:27 02/10/20 05:27 Additional Labs: Accuchecks 02/10/20 02/10/20 02/10/20 15:59 11:52 05:10 POC Glucose 112 H 130 H 131 H 02/09/20 19:08 POC Glucose 137 H Hospitalist ROS - Review of Systems Constitutional: denies: fever, chills - Medication Medications: Active Medications Generic Name Dose Route Start Last Admin Trade Name Kenneth PRN Reason Stop Dose Admin Acetaminophen 650 mg 02/07/20 00:49 02/10/20 15:57 Tylenol PO 650 mg Q4H PRN Administration Headache/Fever/Mild Pain (1-3) Cyanocobalamin 1,000 mcg 02/07/20 09:00 02/10/20 08:04 Vitamin B-12 PO 1,000 mcg DAILY MILY Administration Folic Acid 1 mg 02/07/20 09:00 02/10/20 08:05 Folvite PO 1 mg DAILY MILY Administration Multivitamins 10 ml/ Folic 1,011.2 mls @ 75 mls/hr 02/07/20 08:00 02/10/20 08 :05 Acid 1 mg/ Thiamine HCl 100 mg IV 1,011.2 mls / Dextrose/Sodium Chloride Q24HR MILY Administration Lorazepam 0.5 mg 02/07/20 01:39 02/09/20 21:10 Ativan SLOW IVP 0.5 mg Q6H PRN Administration Alcohol Withdrawal Nicotine 14 mg 02/07/20 13:00 02/10/20 12:00 Nicoderm Patch TOP 14 mg Q24HR MILY Administration Ondansetron HCl 4 mg 02/07/20 03:37 02/07/20 03:51 Zofran IVP 4 mg Q6H PRN Administration Nausea/Vomiting Sodium Chloride 10 ml 02/07/20 09:00 02/10/20 08:05 Flush - Normal Saline IVF 10 ml Q12HR MILY Administration Thiamine HCl 100 mg 02/07/20 09:00 02/10/20 08:05 Thiamine PO 100 mg DAILY MILY Administration - Exam General Appearance: NAD, awake alert Eye: PERRL, anicteric sclera Eye - other findings: eyes consistent with Graves ENT: normocephalic atraumatic, no oropharyngeal lesions Neck: supple, no JVD Heart: RRR, no murmur, no gallops, no rubs Respiratory: CTAB, no wheezes, no rales, no ronchi Gastrointestinal: soft, non-tender, non-distended, normal bowel sounds, no palpable masses Extremities: no cyanosis, no clubbing, no edema Skin: normal turgor, no lesions, no rashes Neurological: cranial nerve grossly intact, normal sensation to touch, no focal deficits, no new deficit Hosp A/P - Plan This is 60 year old male with past medical history of hypothyroidism, depression coming in with severe anemia Severe macrocytic anemia - Hb 4 on admission, s/p transfusion with improvement to 7. She received another transfusion on 28, hemoglobin improved to 8 - EGD showed no abnormality. Patient had colonoscopy and is s/p removal. Biopsy negative for cancer - regular diet - B12/folate normal - iron studies consistent with anemia of chronic disease. Ferritin high. Will check iron sat - TSH normal - stable for discharge Sigmoid leiomyoma - outpatient follow up Hypokalemia - K 3.0, will recheck tomorrow Acute encephalopathy -resolved Transaminitis - resolved Leukopenia - resolved Dispo: likely d/c in am pending placement rehab vs home health
--- NOTE | 2020-02-10 17:05 | DIS ---
DATE OF ADMISSION: 02/07/2020 DATE OF DISCHARGE: 02/09/2020 DISCHARGE DIAGNOSES: 1. Severe macrocytic anemia 2. Acute encephalopathy 3. Hypokalemia, 4. Transaminitis 5. Leukopenia. CONSULTATION: GI with Dr. Jasiel Cuellar. PROCEDURES: EGD and colonoscopy. BRIEF HISTORY OF PRESENT ILLNESS: This is a 60-year-old female with a past medical history of hypothyroidism, alcohol abuse, COPD, Graves disease, who has presented to the emergency room with generalized weakness. The patient reported that she was not eating very much and was having generalized aches and pains. She went to the ER and was found to have a hemoglobin of 4. She was given IV fluids and transferred here for further evaluation. HOSPITAL COURSE: 1. Severe macrocytic anemia: The patient had a hemoglobin of 4 on admission. She was transfused 2 units of blood on the with improvement in her hemoglobin to 7.7. GI was consulted and she underwent an upper endoscopy, which was essentially normal and a colonoscopy that showed a sigmoid polyp, which was removed. Pathology from the polyp did not show any evidence of cancer, but showed a submucosal leiomyoma. She also had some internal hemorrhoids. She did have workup for anemia including a B12, folate, and TSH, which were normal. Iron panel was done, which was consistent with anemia of chronic disease with a ferritin of 667 and a low TIBC. On 02/07, she reported persistent dizziness and was hypotensive with systolic BP of 89. She was transfused another 1 unit of blood with improvement in her hemoglobin to 9.8 on the . Her dizziness resolved on discharge. 2. Weakness: She was seen by Physical Therapy, who recommended rehab. However , the patient does not qualify for rehab because she has no more rehab benefits. They were unable to get home health set up either. She will be discharged home and was advised to get outpatient PT. The patient states that she has a cane and a walker at home. She can follow up with her PCP in a week to have her blood count repeated with regard to her anemia. 2. Leukopenia: The patient had a white blood cell count of 4.5 on admission, which decreased to 3.8 on 02/07. Her white blood cell count improved to 5.3 on the day of discharge. 3. Hypokalemia: The patient had potassium of 3.0 on 02/09. This was replaced. She should get a repeat BMP in a week to reassess her hypokalemia. 4. Acute encephalopathy: The patient did have some episodes of acute confusions while in the hospital. This could have been from low blood pressure. She does have episodes where she yells randomly for no reason. She was started on thiamine and folic acid for history of alcoholism. 5. Transaminitis: The patient did present with an alkaline phosphatase of 114 on admission. This was repeated on the and came back to normal to 109. Her LDH and bilirubin were normal. DISCHARGE PHYSICAL EXAMINATION: VITAL SIGNS: Temperature 98, heart rate 77, blood pressure 108/75, respiratory rate 16, O2 saturation 97% on room air. GENERAL: The patient is alert. She is oriented x3. She has had some episodes of moodiness. CVS: Regular rate and rhythm with no murmurs, rubs, or gallops. LUNGS: Clear to auscultation bilaterally. ABDOMEN: Positive bowel sounds, soft, nontender, nondistended. EXTREMITIES: No edema. PERTINENT LABORATORY DATA: CBC on 02/09: White blood cell count 5.3, hemoglobin 8.9, hematocrit 26, MCV 100, platelet count 239. BMP on 02/08: Normal. Iron panel: Ferritin 667, iron sat 25, iron level 42, TIBC 166. Vitamin B12: 420. Folate: Greater than 76. TSH: 0.4725. UA on 02/08: Negative. IMAGING: CT abdomen and pelvis on 02/06: No acute abnormality. Fat containing periumbilical hernia is present. Colon polyp biopsy: Submucosal leiomyoma. DISCHARGE CONDITION: Stable. ACTIVITY: As tolerated. DIET: Regular diet. DISCHARGE MEDICATIONS: New prescriptions: Nicotine patch 14 mg topical q.24. All other home medications were resumed. DISCHARGE INSTRUCTIONS: The patient was found to have a sigmoid polyp that was 10 mm that was removed that showed leiomyoma. She should follow up with her PCP within a week and have her CBC repeated and her BMP repeated to follow up for hypokalemia. Job ID: [id number] [id number]
== END 2020-02-10 16:58 | disposition home or self-care (01) | DRG 811 ==
LOC: ERS 23:33 → T4-B 02-07 00:35
PROVIDERS: ADMIT Internal Medicine; ATTEND Internal Medicine
PROC: 30233N1 Transfusion of Nonautologous Red Blood Cells into Peripheral Vein, Percutaneous Approach (ICD-10-PCS; principal; 2020-02-07)
PROC: 0DJ08ZZ Inspection of Upper Intestinal Tract, Via Natural or Artificial Opening Endoscopic (ICD-10-PCS; 2020-02-08)
PROC: 0DBN8ZZ Excision of Sigmoid Colon, Via Natural or Artificial Opening Endoscopic (ICD-10-PCS; 2020-02-08)
DX: D53.9 Nutritional anemia, unspecified (principal); E43 Unspecified severe protein-calorie malnutrition; G92 Toxic encephalopathy; E87.1 Hypo-osmolality and hyponatremia; E87.6 Hypokalemia; D72.819 Decreased white blood cell count, unspecified; E03.9 Hypothyroidism, unspecified; F10.10 Alcohol abuse, uncomplicated; J44.9 Chronic obstructive pulmonary disease, unspecified; E05.00 Thyrotoxicosis with diffuse goiter without thyrotoxic crisis or storm; D12.5 Benign neoplasm of sigmoid colon; K64.8 Other hemorrhoids; F41.9 Anxiety disorder, unspecified; F17.210 Nicotine dependence, cigarettes, uncomplicated; M10.9 Gout, unspecified; F32.9 Major depressive disorder, single episode, unspecified; T42.75XA Adverse effect of unspecified antiepileptic and sedative-hypnotic drugs, initial encounter; E83.42 Hypomagnesemia; Z90.49 Acquired absence of other specified parts of digestive tract; Z79.890 Hormone replacement therapy; Z79.899 Other long term (current) drug therapy; Z68.20 Body mass index [BMI] 20.0-20.9, adult
CPT/HCPCS: 36415; 36416; 36430; 74176; 80048; 80053; 80076; 81001; 82274; 82607; 82728; 82746; 83010; 83540; 83550; 83615; 83735; 84100; 84443; 85025; 85027; 85060; 86850; 86900; 86901; 88305; 88341; 88342; C9113; J2001; J2060; J2405; J2704; J3411; J3475; J3480; J7030; J7042; P9016